=== PATIENT | female | born 1935 | race Caucasian/White ===

== ENCOUNTER 2016-09-10 12:03 | Inpatient (IN) | payer MEDICARE, MEDICAID ==
[~2016-09-10] VITALS: Ht 160 cm; Wt 63.5 kg
[~2016-09-10 12:03] MED LIST: AMIO200T2 PO; APIX2.5T PO; ATOR40TA PO; CARV12.52 PO; ISOS30TA28 PO; LETR2.5T7 PO; LOSA100T15 PO; OMEP40CA37 PO
--- NOTE | 2016-09-10 12:30 | NUR ---
PT SENT FROM [facility] FOR PSYCH EVAL, C/O SUICIDAL IN OFFICE. NAD NOTED. PT NOTED CALM AND COOPERATIVE. FAMILY MEMBER AT BS. VSS. SAFETY AND COMFORT MEASURES PROVIDED. WILL MONITOR.
--- NOTE | 2016-09-10 12:42 | NUR ---
CALLED [facility] FOR PSYCH EVAL
[2016-09-10 12:52] LABS: BASOPHILS % (AUTO) 0.6 % (0.0-2.0); EOSINOPHILS # (AUTO) 0.1 /CMM (0.0-0.7); EOSINOPHILS % (AUTO) 1.6 % (0.0-6.0); HEMATOCRIT 35 % (33-45); HEMOGLOBIN 11.4 g/dL (11.5-14.8); LYMPHOCYTES % (AUTO) 24.3 % (20.0-44.0); MEAN CORPUSCULAR HEMOGLOBIN 27 PG (26.0-33.0); MEAN CORPUSCULAR HGB CONC 33 g/dl (31.0-36.0); MEAN CORPUSCULAR VOLUME 82 fL (82-100); MONOCYTES # (AUTO) 0.3 /CMM (0.1-1.30); MONOCYTES % (AUTO) 7.4 % (2.0-12.0); NEUTROPHILS # (AUTO) 2.8 /CMM (1.8-8.9); NEUTROPHILS % (AUTO) 66.1 % (43.0-81.0); PLATELET COUNT (AUTO) 183 /CMM (150-450); RDW COEFFICIENT OF VARIATION 14.5 (11.5-15.0); RED BLOOD CELL COUNT(AUTO) 4.22 MIL/uL (4.0-5.2); WHITE BLOOD COUNT (AUTO) 4.3 K/uL (4.3-11.0)
[2016-09-10 13:01] LABS: APPEARANCE,URINE Clear (CLEAR); BILIRUBIN,URINE Negative (NEGATIVE); BLOOD, URINE Negative Ery/uL (NEGATIVE); COLOR,URINE Yellow (YELLOW); KETONES,URINE Trace (NEGATIVE); LEUKOCYTE ESTERASE ,URINE Negative (NEGATIVE); NITRITE, URINE Negative (NEGATIVE); PROTEIN,URINE Negative (NEGATIVE); UGLUCOSE Negative (NEGATIVE); UROBILINOGEN,URINE 0.2 EU/dL (0.2)
[2016-09-10 13:08] LABS: TROPONIN I 0.021 ng/mL (0.00-0.056)
[2016-09-10 13:10] LABS: CANNABINOID, URINE NEGATIVE (NEGATIVE); PHENCYCLIDINE SCREEN,URINE NEGATIVE (NEGATIVE)
[2016-09-10 13:13] LABS: ADD URINE CULTURE NO; BACTERIA,URINE Rare /HPF (None Seen); RBC,URINE 0-3 /HPF (0-2); SQUAMOUS EPITHELIAL CELL,UR Few /HPF (None Seen)
[2016-09-10 13:14] LABS: CALCIUM, SERUM 8.9 mg/dL (8.5-10.1); CARBON DIOXIDE 25 mmol/L (21-32); CHLORIDE 105 mmol/L (98-107); CREATININE 0.9 mg/dL (0.6-1.3); GLUCOSE 177 mg/dL (74-106); SODIUM SERUM 140 mmol/L (136-145); UREA NITROGEN, BLOOD 16 mg/dL (7-18)
[2016-09-10 13:16] LABS: ALCOHOL, BLOOD < 3 mg/dL (0-0)
--- NOTE | 2016-09-10 13:24 | NUR ---
CALLED INTAKE SPOKE WITH [facility]
--- NOTE | 2016-09-10 13:39 | NUR ---
[facility] AT BEDSIDE FOR EVAL
--- NOTE | 2016-09-10 14:50 | NUR ---
REPORT GIVEN TO JAYESH NEGRON FOR [facility] [phone]
[2016-09-10] MEDS ORDERED: LORAZEPAM 0.5 MG TABLET PO PRN (15:30)
[2016-09-10] MEDS ORDERED: MAG HYDROX/AL HYDROX/SIMETH 30 ML UDC PO PRN (15:30)
[2016-09-10] MEDS ORDERED: ACETAMINOPHEN 325 MG TABLET PO PRN (15:30)
[2016-09-10] MEDS ORDERED: MAGNESIUM HYDROXIDE 30 ML UDC PO PRN (15:30)
[2016-09-10] MEDS ORDERED: ZOLPIDEM TARTRATE 5 MG TABLET PO PRN (15:30)
--- NOTE | 2016-09-10 15:51 | NUR ---
GPS RN ADMITTING NOTE: PATIENT 81 Y/O FEMALE ADMITTED TO GPS ON 515 HOLD FOR DTS, GD. PER HOLD PATIENT TOLD HE PRIMACY CARE PHYSICIAN THAT SHE WAS SUICIDAL, PER F/F EVAL PATIENT A/O X3 DEPRESSED MOOD DENIES SI/HI PT STATED " IM LIVING TODAY HOME" GRANDSON AT THE BED SIDE PER PER DAUGHTER PATIENT WAS INCREASINGLY DEPRESSED, DR MEANS AWARE AND STANDING ORDERS PLACED AND CARED OUT. BELONGINGS CHECKED.
[2016-09-10 16:00] VITALS: BP 130/74
[2016-09-10] MEDS ORDERED: DABI150C PO (16:19)
[2016-09-10] MEDS ORDERED: GLIP5TAB13 PO (16:19)
[2016-09-10] MEDS ORDERED: CARV40CP PO (16:19)
[2016-09-10] MEDS ORDERED: ATOR40TA PO (16:19)
[2016-09-10] MEDS ORDERED: SITA1TAB6 PO (16:19)
[2016-09-10] MEDS ORDERED: LORA10TA7 PO (16:19)
[2016-09-10] MEDS ORDERED: OMEP20TA68 PO (16:19)
[2016-09-10] MEDS ORDERED: DRON400T2 PO (16:19)
[2016-09-10] MEDS ORDERED: ESCI20TA PO (16:19)
[2016-09-10] MEDS ORDERED: VALS1TAB52 PO (16:26)
[2016-09-10 16:59] VITALS: BP 130/74
[2016-09-10] MEDS ORDERED: VALS320T13 PO (18:14)
[2016-09-10] MEDS: ESCITALOPRAM OXALATE (10 MG) 10 MG TABLET PO SCH (18:33)
--- NOTE | 2016-09-10 19:15 | NUR ---
GPS RN NOTE: PATIENT SKIN CHECKED PICTURE PLACED IN THE CHART , RECONCILED HOME MEDICATIONS WITH DR CAMPOVERDE FAX TO PHARMACY AND CALLED PHARMACY TO VERIFY.
[2016-09-10 20:21] VITALS: BP 152/67
[2016-09-10] MEDS: CARVEDILOL 12.5 MG TABLET PO SCH (21:53)
[2016-09-10] MEDS: glipiZIDE 5 MG TABLET PO SCH (21:53)
[2016-09-10] MEDS: ATORVASTATIN 40 MG TABLET PO SCH (21:54)
[2016-09-10] MEDS: ISOSORBIDE MONONITRATE (30MG) 30 MG TAB.SR.24H PO SCH (21:54)
[2016-09-10] MEDS: DRONEDARONE HYDROCHLORIDE 400 MG TABLET PO SCH (21:55)
[2016-09-10] MEDS: DABIGATRAN ETEXILATE MESYLATE 150 MG CAPSULE PO SCH (21:56)
[2016-09-11 07:33] LABS: ALBUMIN 3.2 g/dL (3.4-5.0); BILIRUBIN,TOTAL 0.5 mg/dL (0.2-1.0); CALCIUM, SERUM 8.5 mg/dL (8.5-10.1); CREATININE 0.7 mg/dL (0.6-1.3); POTASSIUM 3.7 mmol/L (3.5-5.1)
[2016-09-11 08:00] VITALS: BP 146/76
[2016-09-11] MEDS: PANTOPRAZOLE 40 MG TABLET.DR PO SCH (08:21)
[2016-09-11] MEDS: LINAGLIPTIN 5 MG TABLET PO SCH (08:22)
[2016-09-11] MEDS: ISOSORBIDE MONONITRATE (30MG) 30 MG TAB.SR.24H PO SCH ×3 (08:22→16:38)
[2016-09-11] MEDS: CARVEDILOL 12.5 MG TABLET PO SCH ×2 (08:22→21:05)
[2016-09-11] MEDS: LORATADINE 10 MG TABLET PO SCH (08:22)
[2016-09-11] MEDS: glipiZIDE 5 MG TABLET PO SCH ×2 (08:22→16:37)
[2016-09-11] MEDS: ESCITALOPRAM OXALATE (10 MG) 10 MG TABLET PO SCH (08:22)
[2016-09-11] MEDS: DRONEDARONE HYDROCHLORIDE 400 MG TABLET PO SCH ×2 (08:23→09:00)
[2016-09-11] MEDS: DABIGATRAN ETEXILATE MESYLATE 150 MG CAPSULE PO SCH ×2 (08:24→09:00)
[2016-09-11] MEDS: APIXABAN 5 MG TABLET PO SCH ×2 (12:02→16:38)
--- NOTE | 2016-09-11 13:05 | NUR ---
Initial Discharge Plan: Patient resides with her daughter at [address] [place] [address]; [phone]. Patient wants to return back home and daughter is in agreement with the plan (Joyce Miller- [phone]). She states that she will be able to scrap picker the patient when she is ready for discharge. SW will help form a safe and proper discharge.
[2016-09-11 16:00] VITALS: BP 156/80
[2016-09-11] MEDS: ATORVASTATIN 40 MG TABLET PO SCH (17:55)
[2016-09-11 20:00] VITALS: BP 118/63
[2016-09-11] MEDS: METFORMIN 500 MG TABLET PO SCH (21:05)
[2016-09-12 08:00] VITALS: BP 149/76
[2016-09-12] MEDS: ESCITALOPRAM OXALATE (10 MG) 10 MG TABLET PO SCH (08:14)
[2016-09-12] MEDS: METFORMIN 500 MG TABLET PO SCH (08:15)
[2016-09-12] MEDS: PANTOPRAZOLE 40 MG TABLET.DR PO SCH (08:15)
[2016-09-12] MEDS: ISOSORBIDE MONONITRATE (30MG) 30 MG TAB.SR.24H PO SCH (08:15)
[2016-09-12] MEDS: LINAGLIPTIN 5 MG TABLET PO SCH (08:15)
[2016-09-12] MEDS: LORATADINE 10 MG TABLET PO SCH (08:15)
[2016-09-12] MEDS: glipiZIDE 5 MG TABLET PO SCH (08:15)
[2016-09-12 08:16] VITALS: BP 149/76
[2016-09-12] MEDS: APIXABAN 5 MG TABLET PO SCH (08:16)
[2016-09-12] MEDS: CARVEDILOL 12.5 MG TABLET PO SCH (08:16)
[2016-09-12] MEDS ORDERED: AMIODARONE HCL 200 MG TABLET PO SCH (09:00)
--- NOTE | 2016-09-12 11:24 | NUR ---
PT. WITH AN ORDER TO D/C HOLD AND D/C HOME. PT. WITHOUT DISTRESS, DENIES SUICIDAL AND HOMICIDAL AND TO FOLLOW UP ON PSYCH AND MEDICAL DOCTORS. DR. CAMPOVERDE MADE AWARE OF THE DISCHARGE AND SAID OK FOR DISCHARGE AND CONTINUE SAME MEDS.
--- NOTE | 2016-09-12 12:00 | NUR ---
PT. SIGNED THE DISCHARGE PAPERS , BELONGINGS READY AND PICTURES TAKEN FOR SKIN ISSUES.
--- NOTE | 2016-09-12 12:50 | NUR ---
PT. LEFT THE UNIT WITH BELONGINGS AND PICKED UP BY HER DAUGHTER SYDNEY JACOBO. PT. INSTRUCTED ON MEDS TO CONTINUE AT HOME AND VERBALIZES UNDERSTANDING AND PER PT. SHE HAS HER MEDICAL MEDS AT HOME AND SHE KNOWS HER MEDS AND NO NEED FOR MEDICAL PRESCRIPTIONS. PT. INSTRUCTED TO MAKE A FOLLOW UP ON HER PSYCHIATRIST AND MEDICAL DOCTORS AND AGREED. PT. LEFT THE UNIT VIA A WHEELCHAIR AND WHEELED BY STAFF TO THE LOBBY. LEFT WITHOUT DISTRESS AND ON STABLE CONDITION. V/S TAKEN: BP 136/84, NJ 76, RR 18'OXYGEN SAT 98% AND TEMP 98.4.
== END 2016-09-12 12:50 | disposition home or self-care (01) | DRG 881 ==
LOC: ER 12:08 → GPS 14:49
PROVIDERS: ADMIT Psychiatry & Neurology Psychiatry; ATTEND Internal Medicine
DX: F32.9 Major depressive disorder, single episode, unspecified (principal); Z91.14 Patient's other noncompliance with medication regimen; Z79.899 Other long term (current) drug therapy; Z95.0 Presence of cardiac pacemaker; Z92.3 Personal history of irradiation; Z85.3 Personal history of malignant neoplasm of breast; I25.10 Atherosclerotic heart disease of native coronary artery without angina pectoris; I10 Essential (primary) hypertension; E78.5 Hyperlipidemia, unspecified; E11.40 Type 2 diabetes mellitus with diabetic neuropathy, unspecified; M19.90 Unspecified osteoarthritis, unspecified site; I48.0 Paroxysmal atrial fibrillation
CPT/HCPCS: 36415; 80048-TC; 80053-TC; 80061-TC; 80305; 81000-TC; 84484-TC; 85025-TC; 87081-TC; A4606; G0480; Z7610

== ENCOUNTER 2016-12-30 19:19 | Emergency (ER) | payer MEDICARE, MEDICAID ==
[~2016-12-30] VITALS: Ht 160 cm; Wt 64.9 kg
[~2016-12-30 19:19] MED LIST changes: -AMIO200T2 PO; -APIX2.5T PO; -CARV12.52 PO; +CARV40CP PO; +DABI150C PO; +DRON400T2 PO; +ESCI20TA PO; +GLIP5TAB13 PO; -LETR2.5T7 PO; +LORA10TA7 PO; -LOSA100T15 PO; +OMEP20TA68 PO; -OMEP40CA37 PO; +SITA1TAB6 PO; +VALS320T13 PO
--- NOTE | 2016-12-30 19:31 | NUR ---
pt c/o lt side back pain s/p fell out of bed x last thursday, no ko, no head trauma, denies dysuria, hematuria. AOx4, afebrile w/ resp even & unlabored, denies any sob w/ mild discomfort noted. Pending further lion starks MD.
--- NOTE | 2016-12-30 19:35 | NUR ---
Urine obtained & sent.
[2016-12-30 19:51] LABS: APPEARANCE,URINE Clear (CLEAR); BILIRUBIN,URINE Negative (NEGATIVE); BLOOD, URINE Negative Ery/uL (NEGATIVE); COLOR,URINE Yellow (YELLOW); KETONES,URINE Negative (NEGATIVE); LEUKOCYTE ESTERASE ,URINE Negative (NEGATIVE); NITRITE, URINE Negative (NEGATIVE); PH,URINE 5.5 (5.0-8.0); PROTEIN,URINE 30 mg/dl (NEGATIVE); UGLUCOSE Negative (NEGATIVE); UROBILINOGEN,URINE 0.2 EU/dL (0.2)
[2016-12-30 20:02] LABS: BACTERIA,URINE None seen /HPF (None Seen); RBC,URINE 0-2 /HPF (0-2); SQUAMOUS EPITHELIAL CELL,UR Few /HPF (None Seen); WBC,URINE 0-2 /HPF (0-3)
[2016-12-30] MEDS ORDERED: ACETAMINOPHEN ES 500 MG TABLET ONE (20:07)
--- NOTE | 2016-12-30 20:08 | NUR ---
pt medicated as ordered for lt side back pain. Sent to CT via [facility].
--- NOTE | 2016-12-30 20:22 | NUR ---
pt back fr CT.
[2016-12-30] MEDS ORDERED: ACETAMINOPHEN ES 500 MG TABLET PO ONE (20:30)
--- NOTE | 2016-12-30 21:13 | NUR ---
Dr. Bravo at bedside for update on pt status.
--- NOTE | 2016-12-30 21:14 | NUR ---
Patient discharged to home in stable condition. Written and verbal after care instructions given. Patient verbalizes understanding of instruction.
[2016-12-30 21:18] VITALS: BP 178/86
== END 2016-12-30 21:20 | disposition home or self-care (01) ==
LOC: ER 19:24
DX: S30.0XXA Contusion of lower back and pelvis, initial encounter (principal); E11.9 Type 2 diabetes mellitus without complications; I10 Essential (primary) hypertension; Z79.01 Long term (current) use of anticoagulants; Z90.710 Acquired absence of both cervix and uterus; Z95.0 Presence of cardiac pacemaker; W06.XXXA Fall from bed, initial encounter; Y93.89 Activity, other specified; Y92.89 Other specified places as the place of occurrence of the external cause; Y99.9 Unspecified external cause status
CPT/HCPCS: 74176; 81001; 99285; A4606; 71250-TC; 81000-TC; Z7610

== ENCOUNTER 2017-01-07 10:26 | Emergency (ER) | payer MEDICARE, MEDICAID ==
[~2017-01-07] VITALS: Ht 157.5 cm; Wt 64.9 kg
[2017-01-07 10:30] VITALS: BP 117/88
== END 2017-01-07 11:58 | disposition home or self-care (01) ==
LOC: ER 10:29
DX: S22.089A Unspecified fracture of T11-T12 vertebra, initial encounter for closed fracture (principal); G62.9 Polyneuropathy, unspecified; E11.9 Type 2 diabetes mellitus without complications; I10 Essential (primary) hypertension; M81.0 Age-related osteoporosis without current pathological fracture; Z79.01 Long term (current) use of anticoagulants; Z95.0 Presence of cardiac pacemaker; W06.XXXA Fall from bed, initial encounter; Y93.89 Activity, other specified; Y92.89 Other specified places as the place of occurrence of the external cause; Y99.8 Other external cause status
CPT/HCPCS: 99281; A4606; Z7502; Z7610

== ENCOUNTER 2017-05-09 18:05 | Emergency (ER) | payer MEDICARE, MEDICAID ==
[~2017-05-09] VITALS: Ht 154.9 cm; Wt 72.6 kg
[~2017-05-09 18:05] MED LIST changes: +OMEP20TA5 PO; -OMEP20TA68 PO
--- NOTE | 2017-05-09 19:10 | NUR ---
TO BED 3 AMBULATORY WITH GRANDSON C/O PALPITATIONS X 2 WKS. HX PACEMAKER. PT AAOX4 NO ACUTE DISTRESS NOTED, RESP EVEN AND UNLABORED. PLACE PT ON CARDIAC MONITORING, CONTINUOUS POX. PENDING ER MD HALL.
[2017-05-09] MEDS ORDERED: IV NS 0.9% 500 ML BAG IV ONE (20:00)
[2017-05-09 20:08] LABS: BASOPHILS % (AUTO) 0.6 % (0.0-2.0); EOSINOPHILS # (AUTO) 0.1 /CMM (0.0-0.7); EOSINOPHILS % (AUTO) 2.3 % (0.0-6.0); HEMATOCRIT 32 % (33-45); HEMOGLOBIN 10.8 g/dL (11.5-14.8); LYMPHOCYTES # (AUTO) 1.4 /CMM (0.8-4.8); LYMPHOCYTES % (AUTO) 29.3 % (20.0-44.0); MEAN CORPUSCULAR HEMOGLOBIN 27 PG (26.0-33.0); MEAN CORPUSCULAR HGB CONC 33 g/dl (31.0-36.0); MEAN CORPUSCULAR VOLUME 79 fL (82-100); MONOCYTES # (AUTO) 0.5 /CMM (0.1-1.30); MONOCYTES % (AUTO) 9.6 % (2.0-12.0); NEUTROPHILS # (AUTO) 2.8 /CMM (1.8-8.9); NEUTROPHILS % (AUTO) 58.2 % (43.0-81.0); PLATELET COUNT (AUTO) 175 /CMM (150-450); RDW COEFFICIENT OF VARIATION 14.3 (11.5-15.0); RED BLOOD CELL COUNT(AUTO) 4.08 MIL/uL (4.0-5.2); WHITE BLOOD COUNT (AUTO) 4.8 K/uL (4.3-11.0)
[2017-05-09 20:19] LABS: CALCIUM, SERUM 8.9 mg/dL (8.5-10.1); CARBON DIOXIDE 26 mmol/L (21-32); CHLORIDE 103 mmol/L (98-107); CREATININE 0.8 mg/dL (0.6-1.3); GLUCOSE 255 mg/dL (74-106); POTASSIUM 4.1 mmol/L (3.5-5.1); SODIUM SERUM 139 mmol/L (136-145); UREA NITROGEN, BLOOD 16 mg/dL (7-18)
--- NOTE | 2017-05-09 20:21 | NUR ---
[employer] CALLED FOR PACEMAKER INTERROGATION. WAITING FOR GARBAGE COLLECTOR SUPERVISOR CALL BACK.
[2017-05-09 20:23] LABS: INR 1.06 (0.87-1.13)
[2017-05-09 20:28] LABS: TROPONIN I 0.032 ng/mL (0.00-0.056)
--- NOTE | 2017-05-09 20:54 | NUR ---
CALLED 'S OFFICE, SENIOR TRAINING AND DEVELOPMENT REP, TRANSFERRED CALL TO DR. ROLAND
--- NOTE | 2017-05-09 21:05 | NUR ---
CALLED , LEFT MESSAGE ON VOICEMAIL
--- NOTE | 2017-05-09 21:10 | NUR ---
[employer] STAFF AT BEDSIDE FOR PACEMAKER INTERROGATION.
[2017-05-09 21:35] VITALS: BP 123/68
--- NOTE | 2017-05-09 21:37 | NUR ---
IV removed. Catheter intact and site benign. Pressure and 4x4 applied to site. No bleeding noted. Patient discharged to home in stable condition. Written and verbal after care instructions given. Patient verbalizes understanding of instruction. ambulatory with a steady gait
== END 2017-05-09 21:41 | disposition home or self-care (01) ==
LOC: ER 18:10
DX: I47.1 Supraventricular tachycardia (principal); I10 Essential (primary) hypertension; E11.9 Type 2 diabetes mellitus without complications; Z95.0 Presence of cardiac pacemaker; Z90.710 Acquired absence of both cervix and uterus; Z98.890 Other specified postprocedural states; Z79.01 Long term (current) use of anticoagulants
CPT/HCPCS: 36415; 71010; 80048; 84484; 85025; 85730; 87081; 93005; 99285; A4606; J7040; Z7610

== ENCOUNTER 2017-05-17 23:40 | Inpatient (IN) | payer MEDICARE, MEDICAID ==
[~2017-05-17] VITALS: Ht 154.9 cm; Wt 69.4 kg
--- NOTE | 2017-05-17 23:46 | NUR ---
PT TO ER BED 5. PT BIB FAMILY C/O CP/SOB X 12 HOURS. PT PLACED IN GOWN AND ON BUILDING TECH. VSS/RESP EVEN UNLABORED/NAD NOTED/SKIN WARM AND DRY/DENIES N-V-D/AOX4. AWAITING MD HALL.
--- NOTE | 2017-05-17 23:50 | NUR ---
EMT AT BEDSIDE FOR EKG.
[2017-05-18] MEDS ORDERED: MORPHINE SULFATE INJ 4 MG/ML DISP.SYRIN ONE (00:22)
[2017-05-18] MEDS ORDERED: ONDANSETRON HCL/PF 4 MG/2 ML VIAL ONE (00:22)
--- NOTE | 2017-05-18 00:29 | NUR ---
LAB AT [facility].
[2017-05-18] MEDS ORDERED: MORPHINE SULFATE INJ 2 MG/ML DISP.SYRIN IV ONE (00:30)
[2017-05-18] MEDS ORDERED: ONDANSETRON HCL/PF 4 MG/2 ML VIAL IVP ONE (00:30)
[2017-05-18 00:37] LABS: BASOPHILS # (AUTO) 0.1 /CMM (0.0-0.2); BASOPHILS % (AUTO) 1.1 % (0.0-2.0); EOSINOPHILS # (AUTO) 0.1 /CMM (0.0-0.7); EOSINOPHILS % (AUTO) 1.6 % (0.0-6.0); HEMATOCRIT 34 % (33-45); HEMOGLOBIN 11.3 g/dL (11.5-14.8); LYMPHOCYTES # (AUTO) 1.3 /CMM (0.8-4.8); LYMPHOCYTES % (AUTO) 21.6 % (20.0-44.0); MEAN CORPUSCULAR HEMOGLOBIN 27 PG (26.0-33.0); MEAN CORPUSCULAR HGB CONC 33 g/dl (31.0-36.0); MEAN CORPUSCULAR VOLUME 81 fL (82-100); MONOCYTES # (AUTO) 0.4 /CMM (0.1-1.30); MONOCYTES % (AUTO) 6.9 % (2.0-12.0); NEUTROPHILS % (AUTO) 68.8 % (43.0-81.0); PLATELET COUNT (AUTO) 181 /CMM (150-450); RDW COEFFICIENT OF VARIATION 15.1 (11.5-15.0); RED BLOOD CELL COUNT(AUTO) 4.23 MIL/uL (4.0-5.2); WHITE BLOOD COUNT (AUTO) 5.9 K/uL (4.3-11.0)
--- NOTE | 2017-05-18 00:48 | NUR ---
DAUGHTER AT BEDSIDE SPEAKING WITH PT.
[2017-05-18 00:50] LABS: CALCIUM, SERUM 8.6 mg/dL (8.5-10.1); CARBON DIOXIDE 24 mmol/L (21-32); CHLORIDE 106 mmol/L (98-107); CREATININE 0.8 mg/dL (0.6-1.3); GLUCOSE 226 mg/dL (74-106); INR 1.01 (0.87-1.13); POTASSIUM 3.6 mmol/L (3.5-5.1); PROTHROMBIN TIME 10.5 SECS (9.5-12.7); SODIUM SERUM 143 mmol/L (136-145); UREA NITROGEN, BLOOD 12 mg/dL (7-18)
[2017-05-18 00:55] LABS: TROPONIN I < 0.017 ng/mL (0.00-0.056)
[2017-05-18 00:59] LABS: ALANINE AMINOTRANSFERASE 36 U/L (12-78); ALBUMIN 3.3 g/dL (3.4-5.0); ALKALINE PHOSPHATASE 67 U/L (46-116); ASPARTATE AMINOTRANSFERASE 39 U/L (15-37); B-TYPE NATRIURETIC PEPTIDE 1353 PG/ML (0-125); BILIRUBIN,DIRECT 0.1 mg/dL (0.0-0.2); BILIRUBIN,TOTAL 0.3 mg/dL (0.2-1.0); TOTAL PROTEIN, SERUM 7.7 g/dL (6.4-8.2)
--- NOTE | 2017-05-18 00:59 | NUR ---
XRAY AT BEDSIDE.
--- NOTE | 2017-05-18 01:45 | NUR ---
PT RESTING QUIETLY, RN TO CONTINUE TO MONITOR PROVIDING SAFETY/COMFORT MEASURES.
[2017-05-18] MEDS ORDERED: FUROSEMIDE 40 MG/4 ML VIAL IV ONE (02:00)
[2017-05-18] MEDS ORDERED: HYDROCODONE/APAP 5/325MG 1 EACH TABLET PO PRN (02:30)
[2017-05-18] MEDS ORDERED: DEXTROSE 50%-WATER 50 ML DISP.SYRIN IV PRN (02:30)
[2017-05-18] MEDS ORDERED: ACETAMINOPHEN 325 MG TABLET PO PRN (02:30)
[2017-05-18] MEDS ORDERED: Z GUARD REMEDY 2 OZ OINT TP PRN (02:30)
[2017-05-18] MEDS ORDERED: MAGNESIUM HYDROXIDE 30 ML UDC PO PRN (02:30)
[2017-05-18] MEDS ORDERED: MAG HYDROX/AL HYDROX/SIMETH 30 ML UDC PO PRN (02:30)
[2017-05-18] MEDS ORDERED: ZOLPIDEM TARTRATE 5 MG TABLET PO PRN (02:30)
[2017-05-18] MEDS: NITROGLYCERIN PACKET 1 GM PACKET TOP SCH ×4 (02:30→20:37)
[2017-05-18] MEDS ORDERED: ONDANSETRON HCL/PF 4 MG/2 ML VIAL IVP PRN (02:30)
--- NOTE | 2017-05-18 02:31 | NUR ---
tele [phone]
[2017-05-18] MEDS ORDERED: FUROSEMIDE 40 MG/4 ML VIAL ONE (03:16)
--- NOTE | 2017-05-18 03:20 | NUR ---
MEDICATED PER MD ORDERS, VSS.
--- NOTE | 2017-05-18 03:50 | NUR ---
REPORT GIVEN TO TYRA FOR JADA.
--- NOTE | 2017-05-18 03:51 | NUR ---
PT TRANSPORTED TO [facility] 114-1 ON WHEEL INSPECTOR VIA STRETCHER WITH RN PER ACLS PROTOCOL.
[2017-05-18 04:00] VITALS: BP 155/67
[2017-05-18] MEDS ORDERED: NITROGLYCERIN PACKET 1 GM PACKET ONE (05:30)
[2017-05-18] MEDS: BLOOD SUGAR DIAGNOSTIC 1 EACH STRIP VI SCH ×4 (07:30→21:37)
--- NOTE | 2017-05-18 07:34 | NUR ---
COLLECTION ANALYST NOTE PATIENT CAME TO [facility] FROM ER. DX CHF. PT C/O FOR CP AND SOB. PT HAS A PACEMAKER. PT PLACED ON BODY MAN. PACING A, B AND A&B . PT ON 2L OF O2. SKIN IS WARM AND DRY TO TOUCH. RU ARM IV SITE FLUSHED AND PATENT. PT AMBULATES, ALL SAFETY PRECAUTIONS IMPLEMENTED. CALL LIGHT IN REACH, BED ALARM ON, BED IN LOCKED, LOW POSITION WITH TWO SIDE RAILS UP. WILL CONTINUE TO MONITOR CLOSELY.
--- NOTE | 2017-05-18 07:59 | NUR ---
SLIVER HANDLER NOTES RECEIVED PT ON BED. SLEEPING. A/0X3. ON NASAL CANNULA TOLERATING WELL.IV ACCESS ON RFA #22 , NO SIGN OF PAIN OR REDNESS. HEAD OF BED UP. SIDE RAILS UP. WILL CONTINUE TO MONITOR PT CLOSELY.
[2017-05-18 08:00] VITALS: BP 153/74
[2017-05-18] MEDS: FUROSEMIDE 40 MG/4 ML VIAL IV SCH ×4 (09:06→20:37)
[2017-05-18] MEDS: *INSULIN REGULAR(HUMULIN R)HUM 100 UNIT/ML VIAL SQ PRN ×4 (09:06→21:42)
[2017-05-18] MEDS ORDERED: CARVEDILOL 25 MG TABLET PO SCH (10:30)
[2017-05-18] MEDS ORDERED: DABIGATRAN ETEXILATE MESYLATE 150 MG CAPSULE PO ONE (10:30)
[2017-05-18] MEDS: ESCITALOPRAM OXALATE (10 MG) 10 MG TABLET PO SCH (10:31)
[2017-05-18] MEDS: VALSARTAN 80 MG TABLET PO SCH (10:31)
[2017-05-18] MEDS: ISOSORBIDE MONONITRATE (30MG) 30 MG TAB.SR.24H PO SCH ×2 (10:32→18:27)
[2017-05-18] MEDS: LORATADINE 10 MG TABLET PO SCH (10:32)
[2017-05-18] MEDS: DRONEDARONE HYDROCHLORIDE 400 MG TABLET PO SCH ×2 (10:32→17:00)
[2017-05-18 12:00] VITALS: BP 142/64
[2017-05-18] MEDS: POTASSIUM CHLORIDE 20 MEQ TAB.PRT.SR PO SCH ×3 (12:38→14:42)
[2017-05-18] MEDS: CARVEDILOL 12.5 MG TABLET PO SCH ×2 (12:39→20:37)
[2017-05-18 13:07] LABS: BASOPHILS % (AUTO) 0.6 % (0.0-2.0); EOSINOPHILS # (AUTO) 0.1 /CMM (0.0-0.7); EOSINOPHILS % (AUTO) 1.7 % (0.0-6.0); HEMATOCRIT 35 % (33-45); HEMOGLOBIN 11.5 g/dL (11.5-14.8); LYMPHOCYTES % (AUTO) 22.3 % (20.0-44.0); MEAN CORPUSCULAR HEMOGLOBIN 27 PG (26.0-33.0); MEAN CORPUSCULAR HGB CONC 33 g/dl (31.0-36.0); MEAN CORPUSCULAR VOLUME 81 fL (82-100); MONOCYTES # (AUTO) 0.3 /CMM (0.1-1.30); MONOCYTES % (AUTO) 7.6 % (2.0-12.0); NEUTROPHILS % (AUTO) 67.8 % (43.0-81.0); PLATELET COUNT (AUTO) 180 /CMM (150-450); RDW COEFFICIENT OF VARIATION 15.1 (11.5-15.0); RED BLOOD CELL COUNT(AUTO) 4.25 MIL/uL (4.0-5.2); WHITE BLOOD COUNT (AUTO) 4.5 K/uL (4.3-11.0)
[2017-05-18 13:20] LABS: CALCIUM, SERUM 9.1 mg/dL (8.5-10.1); CARBON DIOXIDE 29 mmol/L (21-32); CHLORIDE 100 mmol/L (98-107); GLUCOSE 186 mg/dL (74-106); POTASSIUM 3.2 mmol/L (3.5-5.1); SODIUM SERUM 139 mmol/L (136-145); UREA NITROGEN, BLOOD 12 mg/dL (7-18)
[2017-05-18 13:25] LABS: ALANINE AMINOTRANSFERASE 33 U/L (12-78); ALBUMIN 3.4 g/dL (3.4-5.0); ALKALINE PHOSPHATASE 69 U/L (46-116); ASPARTATE AMINOTRANSFERASE 29 U/L (15-37); BILIRUBIN,TOTAL 0.3 mg/dL (0.2-1.0); TOTAL PROTEIN, SERUM 7.9 g/dL (6.4-8.2)
[2017-05-18 13:30] LABS: MAGNESIUM 0.7 mg/dL (1.8-2.4)
[2017-05-18 13:40] LABS: CHOLESTEROL 136 mg/dL (<200); FERRITIN 18 ng/mL (8-388); HDL CHOLESTEROL 48 mg/dL (40-60); LDL 64 mg/dL (0-99); THYROID STIMULATING HORMONE 1.586 uIU/mL (0.358-3.74); TRIGLYCERIDES 150 mg/dL (30-150)
--- NOTE | 2017-05-18 14:03 | NUR ---
ARTIST COLOR SEPARATION NOTES CALLED DR. SEPULVEDA REGARDING PT MAGNESIUM LEVEL .7
[2017-05-18] MEDS ORDERED: POTASSIUM CL. PREMIX PERIPHER. 50 ML IV SCH (14:30)
[2017-05-18] MEDS: Magnesium 1GM/D5W 100ML PREMIX 100 ML IV SCH ×5 (15:50→23:06)
[2017-05-18 16:00] VITALS: BP 95/52
--- NOTE | 2017-05-18 16:28 | NUR ---
STITCHER HAND NOTES NOTIFIED PHARMACY ABOUT POTASSIUM MEDICATION.
[2017-05-18] MEDS: ATORVASTATIN 40 MG TABLET PO SCH (18:26)
[2017-05-18] MEDS: APIXABAN 5 MG TABLET PO SCH (18:27)
--- NOTE | 2017-05-18 18:48 | NUR ---
CERTIFIED PHYSICAL THERAPIST ASSISTANT NOTES POTASSIUM IS NOT YET READY. CALLED PHARMACY TWICE.
--- NOTE | 2017-05-18 19:05 | NUR ---
CAREER DEVELOPMENT COORDINATOR/TEACHER OPENING NOTES RECEIVED REPORT FROM LARA NEGRON. PATIENT A/A/O X4, ABLE TO MAKE NEEDS KNOWN & NOTED W/ STEADY GAIT WHEN ASSISTED TO BATHROOM. BREATHING EVEN & UNLABORED, ON O2 2L VIA NC. DENIES SOB OR DIFFICULTY BREATHING. ON TELE SINUS RHYTHM, A-PACING W/ HR 70. DENIES ANY CHEST PAIN OR DISCOMFORT @ THIS TIME. RIGHT FOREARM IV #22 INTACT & PATENT W/ DRESSING CDI & IV MG @ 100 ML/HR. SAFETY MEASURES IN PLACE W/ SIDE RAILS UP, BED LOCKED & IN LOWEST POSITION & CALL LIGHT WITHIN REACH. WILL CONTINUE TO MONITOR.
[2017-05-18 19:39] LABS: IRON, SERUM 50 ug/dl (50-175); TOTAL IRON BINDING CAPACITY 489 ug/dl (250-450)
[2017-05-18 20:00] VITALS: BP 106/52
--- NOTE | 2017-05-18 20:00 | NUR ---
MODULAR HOME CREW MEMBER NOTES NO ACUTE CHANGES NOTED DURING THE SHIFT. MEDS ENDORSED PROPERLY TO THE PM NURSE. HEAD OF BED ELEVATED. SIDE RAILS UP. CALL LIGHT IS PLACED WITHIN REACH. PROVIDED SAFETY AND COMFORT THROUGHOUT THE SHIFT.
--- NOTE | 2017-05-18 20:43 | NUR ---
RN NOTES NITRO OINTMENT NON-ADMINISTERED, PATIENT DENIES ANY CHEST PAIN @ THIS TIME.
[2017-05-18] MEDS: POTASSIUM CL. PREMIX PERIPHER. 50 ML IV SCH ×2 (21:12→23:27)
[2017-05-19] VITALS: BP 137/66
[2017-05-19] MEDS: POTASSIUM CL. PREMIX PERIPHER. 50 ML IV SCH ×2 (01:35→03:34)
[2017-05-19] MEDS: FUROSEMIDE 40 MG/4 ML VIAL IV SCH ×6 (01:35→21:00)
[2017-05-19] MEDS ORDERED: Magnesium 1GM/D5W 100ML PREMIX 100 ML IV ONE ×2 (02:06→04:43)
[2017-05-19] MEDS: Magnesium 1GM/D5W 100ML PREMIX 100 ML IV SCH ×3 (02:23→09:49)
--- NOTE | 2017-05-19 02:56 | NUR ---
RN NOTES TROPONIN LEVEL RESULT RELAYED TO DR RIVERA. NO NEW ORDERS RECEIVED.
[2017-05-19 04:00] VITALS: BP 153/79
[2017-05-19] MEDS: NITROGLYCERIN PACKET 1 GM PACKET TOP SCH ×4 (04:47→21:20)
[2017-05-19 08:00] VITALS: BP 127/59
--- NOTE | 2017-05-19 08:00 | NUR ---
TELE1/RN AM SHIFT INITIAL NOTES RECEIVED PT AWAKE SITTING IN BED, NO ACUTE RESPIRATORY DISTRESS NOTED. PT A/O X 4, PT DENIES ANY SYMPTOMS. ON 2L O2 VIA N/C SATURATING @ 95%, LUNG SOUNDS DIMINISHED, RESPIRATIONS EVEN AND UNLABORED. ON TELE MONITORING, A-PACING, HR 75. IV SITES FLUSHED, PATENT WITH NO S/S OF INFECTION. BLOOD GLUCOSE CHECKED, 235, NO S/S OF HYPERGLYCEMIA, PT WILL BE GIVEN 6 UNITS OF REGULAR INSULIN SC, PER SLIDING SCALE. PT IS COMFORTABLE AT THIS TIME. SCHEDULED AM MEDICATIONS TO BE GIVEN. CL WITHIN REACHED AND SAFETY MAINTAINED. ON GOING MONITORING.
[2017-05-19 08:30] LABS: BASOPHILS % (AUTO) 0.3 % (0.0-2.0); EOSINOPHILS # (AUTO) 0.1 /CMM (0.0-0.7); EOSINOPHILS % (AUTO) 1.5 % (0.0-6.0); HEMATOCRIT 32 % (33-45); HEMOGLOBIN 10.9 g/dL (11.5-14.8); LYMPHOCYTES # (AUTO) 0.8 /CMM (0.8-4.8); MEAN CORPUSCULAR HEMOGLOBIN 27 PG (26.0-33.0); MEAN CORPUSCULAR HGB CONC 34 g/dl (31.0-36.0); MEAN CORPUSCULAR VOLUME 81 fL (82-100); MONOCYTES # (AUTO) 0.4 /CMM (0.1-1.30); MONOCYTES % (AUTO) 7.4 % (2.0-12.0); NEUTROPHILS # (AUTO) 4.2 /CMM (1.8-8.9); NEUTROPHILS % (AUTO) 76.8 % (43.0-81.0); PLATELET COUNT (AUTO) 190 /CMM (150-450); RDW COEFFICIENT OF VARIATION 14.9 (11.5-15.0); RED BLOOD CELL COUNT(AUTO) 4.01 MIL/uL (4.0-5.2); WHITE BLOOD COUNT (AUTO) 5.5 K/uL (4.3-11.0)
[2017-05-19 08:41] LABS: TROPONIN I 0.103 ng/mL (0.00-0.056)
[2017-05-19] MEDS: BLOOD SUGAR DIAGNOSTIC 1 EACH STRIP VI SCH ×4 (08:48→21:19)
[2017-05-19 08:51] LABS: ALANINE AMINOTRANSFERASE 31 U/L (12-78); ALBUMIN 3.4 g/dL (3.4-5.0); ALKALINE PHOSPHATASE 67 U/L (46-116); ASPARTATE AMINOTRANSFERASE 26 U/L (15-37); BILIRUBIN,TOTAL 0.4 mg/dL (0.2-1.0); CALCIUM, SERUM 8.8 mg/dL (8.5-10.1); CARBON DIOXIDE 29 mmol/L (21-32); CHLORIDE 100 mmol/L (98-107); GLUCOSE 181 mg/dL (74-106); MAGNESIUM 2.7 mg/dL (1.8-2.4); PHOSPHORUS 4.1 mg/dL (2.5-4.9); POTASSIUM 3.9 mmol/L (3.5-5.1); SODIUM SERUM 140 mmol/L (136-145); TOTAL PROTEIN, SERUM 7.8 g/dL (6.4-8.2); UREA NITROGEN, BLOOD 17 mg/dL (7-18)
[2017-05-19] MEDS ORDERED: Magnesium 1GM/D5W 100ML PREMIX PIGGYBACK IV ONE (09:00)
[2017-05-19] MEDS: PANTOPRAZOLE 40 MG TABLET.DR PO SCH (09:56)
[2017-05-19] MEDS: VALSARTAN 80 MG TABLET PO SCH (09:56)
[2017-05-19] MEDS: DRONEDARONE HYDROCHLORIDE 400 MG TABLET PO SCH ×2 (09:56→17:45)
[2017-05-19] MEDS: ESCITALOPRAM OXALATE (10 MG) 10 MG TABLET PO SCH (09:56)
[2017-05-19] MEDS: CARVEDILOL 12.5 MG TABLET PO SCH ×2 (09:57→21:00)
[2017-05-19] MEDS: APIXABAN 5 MG TABLET PO SCH ×2 (09:57→17:45)
[2017-05-19] MEDS: LORATADINE 10 MG TABLET PO SCH (09:57)
[2017-05-19] MEDS: ISOSORBIDE MONONITRATE (30MG) 30 MG TAB.SR.24H PO SCH ×2 (09:58→17:45)
[2017-05-19] MEDS: INSULIN REGULAR, HUMAN 100 UNIT/ML 3 ML VIAL SQ PRN ×3 (10:00→17:43)
[2017-05-19 12:00] VITALS: BP 100/52
[2017-05-19] MEDS ORDERED: POTASSIUM CHLORIDE 20 MEQ TAB.PRT.SR PO SCH (13:00)
[2017-05-19] MEDS: *INSULIN REGULAR(HUMULIN R)HUM 100 UNIT/ML VIAL SQ PRN ×2 (13:14→21:21)
[2017-05-19 16:00] VITALS: BP 100/47
[2017-05-19] MEDS ORDERED: MAGNESIUM CITRATE 296 ML BOTTLE PO ONE (16:30)
[2017-05-19] MEDS ORDERED: NA PHOS,M-B/NA PHOS,DI-BA 1 EA ENEMA RC PRN (16:30)
[2017-05-19] MEDS ORDERED: PEG 3350/NA SULF,BICARB,CL/KCL 4,000 ML BOTTLE PO ONE (16:30)
[2017-05-19] MEDS: ATORVASTATIN 40 MG TABLET PO SCH (17:45)
--- NOTE | 2017-05-19 19:30 | NUR ---
MS1/RN AM SHIFT END NOTES NO ACUTE CHANGE OF CONDITION NOTED DURING THE SHIFT. ALL NEEDS MET. PT ENDORSED TO PM NURSE TO CONTINUE CARE. CL WITHIN REACHED AND SAFETY MAINTAINED.
[2017-05-19 20:00] VITALS: BP 105/49
[2017-05-20 04:00] VITALS: BP 123/58
[2017-05-20] MEDS: NITROGLYCERIN PACKET 1 GM PACKET TOP SCH ×2 (05:00→12:17)
[2017-05-20] MEDS: BLOOD SUGAR DIAGNOSTIC 1 EACH STRIP VI SCH ×2 (06:34→12:17)
--- NOTE | 2017-05-20 07:30 | NUR ---
MS MIGDALIA AM NOTES RECEIVED PT AWAKE SITTING IN BED, NO ACUTE RESPIRATORY DISTRESS NOTED. PT A/O X 4, PT DENIES ANY SYMPTOMS. ON 2L O2 VIA N/C SATURATING @ 97%, LUNG SOUNDS DIMINISHED, RESPIRATIONS EVEN AND UNLABORED. LFA G22 AND RFA G22 IV SITES FLUSHED, SITE CLEAR. CCHO DIET, AMBULATE WITH ASSIST. SAFETY MEASURES IN PLACE, WILL CONT TO MONITOR.
[2017-05-20 07:34] LABS: BASOPHILS % (AUTO) 0.3 % (0.0-2.0); EOSINOPHILS # (AUTO) 0.2 /CMM (0.0-0.7); EOSINOPHILS % (AUTO) 3.2 % (0.0-6.0); HEMATOCRIT 31 % (33-45); HEMOGLOBIN 10.5 g/dL (11.5-14.8); LYMPHOCYTES % (AUTO) 18.2 % (20.0-44.0); MEAN CORPUSCULAR HEMOGLOBIN 27 PG (26.0-33.0); MEAN CORPUSCULAR HGB CONC 34 g/dl (31.0-36.0); MEAN CORPUSCULAR VOLUME 81 fL (82-100); MONOCYTES # (AUTO) 0.5 /CMM (0.1-1.30); MONOCYTES % (AUTO) 8.7 % (2.0-12.0); NEUTROPHILS # (AUTO) 3.7 /CMM (1.8-8.9); NEUTROPHILS % (AUTO) 69.6 % (43.0-81.0); PLATELET COUNT (AUTO) 199 /CMM (150-450); RDW COEFFICIENT OF VARIATION 14.8 (11.5-15.0); RED BLOOD CELL COUNT(AUTO) 3.89 MIL/uL (4.0-5.2); WHITE BLOOD COUNT (AUTO) 5.3 K/uL (4.3-11.0)
[2017-05-20 08:00] VITALS: BP 146/63
[2017-05-20 08:05] LABS: ALANINE AMINOTRANSFERASE 24 U/L (12-78); ALBUMIN 3.2 g/dL (3.4-5.0); ALKALINE PHOSPHATASE 61 U/L (46-116); ASPARTATE AMINOTRANSFERASE 19 U/L (15-37); BILIRUBIN,TOTAL 0.4 mg/dL (0.2-1.0); CALCIUM, SERUM 8.5 mg/dL (8.5-10.1); CARBON DIOXIDE 29 mmol/L (21-32); CHLORIDE 102 mmol/L (98-107); CREATININE 1.2 mg/dL (0.6-1.3); GLUCOSE 187 mg/dL (74-106); MAGNESIUM 2.1 mg/dL (1.8-2.4); PHOSPHORUS 3.4 mg/dL (2.5-4.9); POTASSIUM 4.1 mmol/L (3.5-5.1); SODIUM SERUM 140 mmol/L (136-145); TOTAL PROTEIN, SERUM 7.3 g/dL (6.4-8.2); TROPONIN I 0.034 ng/mL (0.00-0.056); UREA NITROGEN, BLOOD 25 mg/dL (7-18)
[2017-05-20] MEDS: DRONEDARONE HYDROCHLORIDE 400 MG TABLET PO SCH (08:49)
[2017-05-20] MEDS: PANTOPRAZOLE 40 MG TABLET.DR PO SCH (08:49)
[2017-05-20] MEDS: APIXABAN 5 MG TABLET PO SCH (08:50)
[2017-05-20] MEDS: FUROSEMIDE 40 MG/4 ML VIAL IV SCH (08:50)
[2017-05-20] MEDS: ISOSORBIDE MONONITRATE (30MG) 30 MG TAB.SR.24H PO SCH (08:51)
[2017-05-20] MEDS: VALSARTAN 80 MG TABLET PO SCH (08:51)
[2017-05-20] MEDS: LORATADINE 10 MG TABLET PO SCH (08:51)
[2017-05-20] MEDS: ESCITALOPRAM OXALATE (10 MG) 10 MG TABLET PO SCH (08:51)
[2017-05-20] MEDS: CARVEDILOL 12.5 MG TABLET PO SCH (08:52)
[2017-05-20] MEDS ORDERED: FUROSEMIDE 40 MG TABLET PO SCH (09:30)
--- NOTE | 2017-05-20 09:30 | NUR ---
MS RN NOTES DUE MEDS GIVEN. PATIENT TO BE SEEN BY DR. MIRELES PER DR. CAMPOVERDE PER JAXON CHARGE NURSE.
--- NOTE | 2017-05-20 12:21 | NUR ---
MIGDALIA NOTES JAKE DONE. BS 404 MG/DL. 15 UNITS HUM R INSULIN GIVEN PER SS. RANDOM GLUCOSE ORDERED NOTIFIED MD. Addendum: 05/20/17 at 1338 by LEONIE PARKER RN ADDENDUM: PER ADR. MIRELES TO GIVE ADDITIONAL 5 UNITS HUM R
[2017-05-20] MEDS: INSULIN REGULAR, HUMAN 100 UNIT/ML 3 ML VIAL SQ PRN (12:25)
[2017-05-20] MEDS ORDERED: INSULIN REGULAR, HUMAN 100 UNIT/ML 10 ML VIAL SQ ONE (12:45)
--- NOTE | 2017-05-20 13:33 | NUR ---
MS RN NOTES REPEAT BS CHECK 408 MG/DL. 5 UNITS HUM R GIVEN PER DR. MIRELES.
[2017-05-20] MEDS ORDERED: FURO40TA5 PO (13:48)
--- NOTE | 2017-05-20 14:14 | NUR ---
MS NEGRON NOTES RANDOM GLUCOSE 420 MG/DL. REPEAT ACCUCHECK - 369 MG/DL. Addendum: 05/20/17 at 1445 by LEONIE PARKER RN ADDENDUM RELAYED TO DR. MIRELES. PER HIM TO REPEAT ACCUCHECK IN AN HOUR. OK TO GO ONCE BS IS 300 MG/DL AND BELOW.
--- NOTE | 2017-05-20 15:54 | NUR ---
MS RN NOTES REPEAT ACCUCHECK - 203 MG/DL. AWARE.
[2017-05-20 16:00] VITALS: BP 123/55
--- NOTE | 2017-05-20 16:10 | NUR ---
PROCESSING TECHNOLOGIST NOTES PATIENT DISCHARGED TO HOME TODAY PER MD IN STABLE CONDITION. PROVIDED DC INSTRUCTIONS, MED RECON LIST AND HEALTH TEACHINGS. LFA AND RFA IV ACCESS REMOVED, NO BLEEDING, DRESSING IN PLACE. PT TO FOLLOW UP WITH PCP IN 1-2 WEEKS AND WILL MAKE OWN APPOINTMENT. ALL BELONGINGS CHECKED AND RETURNED. ALL PAPERWORKS SIGNED. SPOKE WITH DAUGHTER OVER THE PHONE RE MEDICATIONS TRANSMITTED TO [employer] ELECTRONICALLY AND READY FOR GAS SINGER. PATIENT ASSISTED TO LOBBY BY LOKESH ECHAVARRIA AND WILL GOHOME VIA PRIVATE CAR BY MALINI ALLEN.
[2017-05-21] MEDS ORDERED: FUROSEMIDE 40 MG TABLET PO SCH (09:00)
== END 2017-05-20 17:03 | disposition home or self-care (01) | DRG 282 ==
LOC: ER 23:43 → TELE1 05-18 02:15 → MEDSG1 05-19 13:08
PROVIDERS: ADMIT Internal Medicine; ATTEND Internal Medicine
DX: I11.0 Hypertensive heart disease with heart failure (principal); I21.4 Non-ST elevation (NSTEMI) myocardial infarction; E11.65 Type 2 diabetes mellitus with hyperglycemia; I50.33 Acute on chronic diastolic (congestive) heart failure; I48.91 Unspecified atrial fibrillation; Z90.710 Acquired absence of both cervix and uterus; Z95.0 Presence of cardiac pacemaker; E78.5 Hyperlipidemia, unspecified; I25.10 Atherosclerotic heart disease of native coronary artery without angina pectoris; K21.9 Gastro-esophageal reflux disease without esophagitis; Z85.3 Personal history of malignant neoplasm of breast; D50.9 Iron deficiency anemia, unspecified; D63.8 Anemia in other chronic diseases classified elsewhere; Z90.49 Acquired absence of other specified parts of digestive tract
CPT/HCPCS: 36415; 71045-TC; 80048-TC; 80053-TC; 80061-TC; 80076-TC; 82306; 82728-TC; 82945-TC; 82962-TC; 83540-TC; 83735-TC; 83880; 84100-TC; 84439-TC; 84443-TC; 84484-TC; 85025-TC; 85730-TC; 87040-TC; 87081-TC; 93307-TC; A4606; J1815; J1940; J2270; J2405; J3475; J3480; J7050; Z7610

== ENCOUNTER 2017-09-15 07:47 | Outpatient (CLI) | payer MEDICARE, MEDICAID ==
[~2017-09-15 07:47] MED LIST changes: +FURO40TA5 PO; -ISOS30TA28 PO; -VALS320T13 PO; +VALS320T16 PO
[2017-09-15 09:05] LABS: BASOPHILS % (AUTO) 0.4 % (0.0-2.0); EOSINOPHILS % (AUTO) 2.1 % (0.0-6.0); HEMATOCRIT 36 % (33-45); HEMOGLOBIN 11.6 g/dL (11.5-14.8); LYMPHOCYTES # (AUTO) 0.9 /CMM (0.8-4.8); LYMPHOCYTES % (AUTO) 19.4 % (20.0-44.0); MEAN CORPUSCULAR HGB CONC 33 g/dl (31.0-36.0); MEAN CORPUSCULAR VOLUME 79 fL (82-100); MONOCYTES # (AUTO) 0.3 /CMM (0.1-1.30); MONOCYTES % (AUTO) 7.1 % (2.0-12.0); NEUTROPHILS # (AUTO) 3.2 /CMM (1.8-8.9); PLATELET COUNT (AUTO) 176 /CMM (150-450); RDW COEFFICIENT OF VARIATION 15.6 (11.5-15.0); RED BLOOD CELL COUNT(AUTO) 4.54 MIL/uL (4.0-5.2); WHITE BLOOD COUNT (AUTO) 4.6 K/uL (4.3-11.0)
[2017-09-15 09:36] LABS: ALANINE AMINOTRANSFERASE 18 U/L (12-78); ALBUMIN 3.5 g/dL (3.4-5.0); ALKALINE PHOSPHATASE 54 U/L (46-116); ASPARTATE AMINOTRANSFERASE 21 U/L (15-37); BILIRUBIN,TOTAL 0.3 mg/dL (0.2-1.0); CALCIUM, SERUM 9.4 mg/dL (8.5-10.1); CARBON DIOXIDE 27 mmol/L (21-32); CHLORIDE 101 mmol/L (98-107); CREATININE 0.9 mg/dL (0.6-1.3); GLUCOSE 256 mg/dL (74-106); POTASSIUM 3.9 mmol/L (3.5-5.1); SODIUM SERUM 139 mmol/L (136-145); TOTAL PROTEIN, SERUM 7.8 g/dL (6.4-8.2); UREA NITROGEN, BLOOD 17 mg/dL (7-18)
[2017-09-15 09:43] LABS: CHOLESTEROL 169 mg/dL (<200); HDL CHOLESTEROL 44 mg/dL (40-60); LDL 89 mg/dL (0-99); THYROID STIMULATING HORMONE 1.607 uIU/mL (0.358-3.74); TRIGLYCERIDES 217 mg/dL (30-150)
[2017-09-15 09:57] LABS: MAGNESIUM 0.8 mg/dL (1.8-2.4)
== END 2017-09-15 23:59 | disposition home or self-care (01) ==
LOC: LAB 07:47
PROVIDERS: ATTEND Internal Medicine Interventional Cardiology
DX: I70.0 Atherosclerosis of aorta (principal); E78.5 Hyperlipidemia, unspecified; R00.0 Tachycardia, unspecified; R79.89 Other specified abnormal findings of blood chemistry; Z95.0 Presence of cardiac pacemaker; R01.1 Cardiac murmur, unspecified
CPT/HCPCS: 36415; 71045-TC; 80053-TC; 80061-TC; 82306; 83735-TC; 84439-TC; 84443-TC; 85025-TC

== ENCOUNTER 2018-02-01 10:11 | Inpatient (IN) | payer MEDICARE, MEDICAID ==
[~2018-02-01] VITALS: Ht 154.9 cm; Wt 65.9 kg
--- NOTE | 2018-02-01 10:20 | NUR ---
BIBRA 38 FROM HOME, CHEST PAIN X 1 WEEK,GETTING WORSE,BLOOD SUGAR 425. PATIENT APPEARS NOT IN DISTRESS. SKIN IS WARM TO TOUCH AND NON DIAPHORETIC. PATIENT IS AFEBRILE. VSS
[2018-02-01 10:52] LABS: BASOPHILS % (AUTO) 0.3 % (0.0-2.0); EOSINOPHILS % (AUTO) 1.5 % (0.0-6.0); HEMATOCRIT 36 % (33-45); LYMPHOCYTES # (AUTO) 0.7 /CMM (0.8-4.8); LYMPHOCYTES % (AUTO) 13.5 % (20.0-44.0); MEAN CORPUSCULAR HGB CONC 33 g/dl (31.0-36.0); MEAN CORPUSCULAR VOLUME 85 fL (82-100); MONOCYTES # (AUTO) 0.3 /CMM (0.1-1.30); MONOCYTES % (AUTO) 5.4 % (2.0-12.0); NEUTROPHILS # (AUTO) 4.2 /CMM (1.8-8.9); NEUTROPHILS % (AUTO) 79.3 % (43.0-81.0); PLATELET COUNT (AUTO) 206 /CMM (150-450); RDW COEFFICIENT OF VARIATION 13.3 (11.5-15.0); RED BLOOD CELL COUNT(AUTO) 4.25 MIL/uL (4.0-5.2); WHITE BLOOD COUNT (AUTO) 5.3 K/uL (4.3-11.0)
[2018-02-01 11:09] LABS: INR 1.11 (0.85-1.15)
[2018-02-01 11:10] LABS: TROPONIN I < 0.017 ng/mL (0.00-0.056)
[2018-02-01 11:11] LABS: GLUCOSE 375 mg/dL (74-106)
[2018-02-01 11:22] LABS: B-TYPE NATRIURETIC PEPTIDE 1309 PG/ML (0-125); CALCIUM, SERUM 8.6 mg/dL (8.5-10.1); CARBON DIOXIDE 28 mmol/L (21-32); CHLORIDE 100 mmol/L (98-107); POTASSIUM 3.8 mmol/L (3.5-5.1); SODIUM SERUM 134 mmol/L (136-145); UREA NITROGEN, BLOOD 12 mg/dL (7-18)
[2018-02-01 11:46] LABS: APPEARANCE,URINE Clear (CLEAR); BILIRUBIN,URINE Negative (NEGATIVE); BLOOD, URINE Negative Ery/uL (NEGATIVE); COLOR,URINE Yellow (YELLOW); KETONES,URINE Negative (NEGATIVE); LEUKOCYTE ESTERASE ,URINE Negative (NEGATIVE); NITRITE, URINE Negative (NEGATIVE); PROTEIN,URINE 30 mg/dl (NEGATIVE); UGLUCOSE >=1000 mg/dL (NEGATIVE); UROBILINOGEN,URINE 0.2 EU/dL (0.2)
[2018-02-01 11:49] LABS: BACTERIA,URINE RARE /HPF (None Seen); RBC,URINE 0-2 /HPF (0-2); SQUAMOUS EPITHELIAL CELL,UR FEW /HPF (None Seen); WBC,URINE 0-2 /HPF (0-3)
[2018-02-01] MEDS ORDERED: FUROSEMIDE 20 MG/2 ML VIAL ONE (12:52)
--- NOTE | 2018-02-01 12:54 | NUR ---
tele [phone]
[2018-02-01] MEDS ORDERED: FUROSEMIDE 40 MG/4 ML VIAL IV ONE (13:00)
[2018-02-01] MEDS ORDERED: FUROSEMIDE 20 MG/2 ML VIAL IV ONE (13:00)
--- NOTE | 2018-02-01 14:30 | NUR ---
BOTTLE TESTERLABELING ASSOCIATE ORDER PATIENT WAS BROUGHT TO THE TELEMETRY UNIT FROM ER ON A GURNEY, ACCOMPANIED BY 2 ER NURSES AND PATIENT'S DAUGHTER. PATIENT IS ABLE TO AMBULATE TO HER BED. ALERT ORIENTED X4, ON ROOM AIR, TOLERATING WELL. IN NO APPARENT DISTRESS OR DISCOMFORT AT THIS TIME. RESPIRATIONS EVEN AND UNLABORED. DENIES CHEST PAIN AND SOB. PATIENT IS STABLE, VITAL SIGNS STABLE. WAS ASSISTED TO HER BED, MADE COMFORTABLE. PHYSICAL ASSESSMENT COMPLETED, SKIN IS INTACT. HEALTH HISTORY OBTAINED FROM THE DAUGHTER. PATIENT IS ABLE TO COMMUNICATE NEEDS, SPEAKS AND UNDERSTANDS LITTLE NICARAGUAN. PATIENT WITH RIGHT FOREARM IVC, 20G, SL, PATENT AND INTACT. WAS PLACED ON TELE MONITORING WITH A-PACING HR OF 86. BELONGINGS CHECKED AND VERIFIED, LIST IS PLACED IN THE CHART. PATIENT WAS ORIENTED TO THE ROOM AND THE UNIT. SAFETY MEASURES WERE APPLIED, BED IN LOW LOCKED POSITION, SIDE RAILS UP X2, CALL LIGHT WITHIN EASY REACH. MD AWARE. WILL CARRY OUT FURTHER ORDERS AND CONTINUE TO MONITOR.
[2018-02-01] MEDS ORDERED: CARVEDILOL PHOSPHATE 80 MG PO SCH (15:00)
[2018-02-01 15:34] LABS: PHOSPHORUS 3.6 mg/dL (2.5-4.9)
[2018-02-01 15:58] LABS: THYROID STIMULATING HORMONE 1.89 uIU/mL (0.358-3.74)
--- NOTE | 2018-02-01 16:30 | NUR ---
SPOKE TO DR. CAMPOVERDE ON THE PHONE. RECEIVED ORDER TO CONTINUE PATIENT'S HOME MEDICATIONS. ORDERED 2G Na DIET. ORDERED LASIX 20MG IVP Q12HR. ORDERS READ BACK AND VERIFIED. WILL CARRY OUT AND CONTINUE TO MONITOR.
[2018-02-01 16:37] VITALS: BP 109/66
[2018-02-01] MEDS ORDERED: Medication Not On Formulary EA (Sitagliptin Phos/Metformin Hcl (Janumet 50-1,000 Mg Tabl PO SCH (17:00)
[2018-02-01] MEDS ORDERED: DRONEDARONE HYDROCHLORIDE 400 MG TABLET PO SCH (17:00)
[2018-02-01] MEDS ORDERED: DABIGATRAN ETEXILATE MESYLATE 150 MG CAPSULE PO SCH (17:00)
[2018-02-01] MEDS ORDERED: glipiZIDE 5 MG TABLET PO SCH (17:00)
--- NOTE | 2018-02-01 17:35 | NUR ---
RECEIVED REPORT FOR CRITICAL LAB VALUE: Mg 0.6. REPORTED TO DR. ANDREWS. VERBAL ORDER RECEIVED TO REPLACE WITH 3G MAGNESIUM. ORDER WAS PLACED FOR Mg 1gm/D5W 100ML IVPB AT THE RATE OF 100ML/HR X3 BAGS. WILL CARRY OUT AND CONTINUE TO MONITOR.
[2018-02-01] MEDS: Magnesium 1GM/D5W 100ML PREMIX 100 ML IV SCH ×3 (17:54→20:42)
[2018-02-01] MEDS: ATORVASTATIN 40 MG TABLET PO SCH (17:54)
[2018-02-01] MEDS ORDERED: OMEP40CA37 PO (18:47)
[2018-02-01] MEDS ORDERED: APIX5TAB PO (18:54)
[2018-02-01] MEDS ORDERED: LOSA100T15 PO (18:54)
[2018-02-01] MEDS ORDERED: ISOS30TA6 PO (18:54)
--- NOTE | 2018-02-01 19:20 | NUR ---
RANGE MECHANIC OPENING NOTES: RECEIVED PT ROOM AIR AND IS TOLERATING WELL. DTR AT BEDSIDE. PT EATING AND SITTING IN BED AT THIS TIME. NO SOB NOTED. NO S/S OF DISTRESS. PT HAS IV BEING INFUSED WITH MAGNESIUM 100ML/HR (SECOND BAG). CALL LIGHT WITHIN PT'S REACH. BED KEPT IN LOW, LOCKED POSITION, AND SIDE RAILS X 2UP. WILL CONTINUE TO MONITOR PT. Addendum: 02/02/18 at 0316 by JAYCEE CAMPA RN PT ON TELE BOX AND READING SHOWS PATIENT A PACING 86.
[2018-02-01] MEDS ORDERED: *INSULIN REGULAR(HUMULIN R)HUM 100 UNIT/ML VIAL SQ PRN (19:30)
[2018-02-01] MEDS ORDERED: APIXABAN 5 MG TABLET PO ONE (19:30)
[2018-02-01] MEDS ORDERED: DEXTROSE 50%-WATER 50 ML DISP.SYRIN IV PRN (19:30)
--- NOTE | 2018-02-01 19:36 | NUR ---
VP HR DIVERSITY CLOSING NOTE PATIENT IN BED. ALERT ORIENTED X4, ON ROOM AIR TOLERATING WELL. IN NO APPARENT DISTRESS OR DISCOMFORT AT THIS TIME. RESPIRATIONS EVEN AND UNLABORED. DENIES CHEST PAIN AND SOB. ABLE TO COMMUNICATE NEEDS. ON TELE MONITORING WITH A-PACING AND HR OF 86. RIGHT HAND IVC 20G WITH MAGNESIUM INFUSING AT 100 CC/HR. PATIENT AND INTACT, NO SIGN OF INFILTRATION. PATIENT IS COMPLIANT WITH INSTRUCTIONS. ABLE TO AMBULATE TO THE BATHROOM WITH STEADY GAIT, SUPERVISION FOR SAFETY. KEPT CLEAN AND COMFORTABLE, ALL ORDERS RENDERED. SAFETY MEASURES IN PLACE, BED IN LOW LOCKED POSITION, SIDE RAILS UP X2, CALL LIGHT WITHIN EASY REACH, DAUGHTER AT BEDSIDE. WILL ENDORSE TO PM NURSE FOR JADA.
[2018-02-01 20:07] VITALS: BP 125/64
[2018-02-01] MEDS ORDERED: LETR2.5T PO (20:34)
[2018-02-01] MEDS ORDERED: VALS320T2 PO (20:34)
[2018-02-01] MEDS ORDERED: CARV12.52 PO (20:34)
--- NOTE | 2018-02-01 20:37 | NUR ---
TELECOMMUNICATIONS PROFESSIONAL NOTES: SPOKE WITH DR. CAMPOVERDE AND INFORMED HIM THAT I ADDED MORE ON MED RECON LIST: LETROZOLE 2.MG PO DAILY, VALSARTAN 320MG PO DAILY, CARVEDILOL 12.5MG 1 TAB TWICE DAILY, AND FUROSEMIDE 20MG. ALSO INFORMED HIM THAT PT IS NOT TAKING LOSARTAN 100MG AND NOT TAKING FUROSEMIDE 40MG. HE WILL TAKE A LOOK AT IT TOMORROW.
[2018-02-01] MEDS ORDERED: FUROSEMIDE 20 MG/2 ML VIAL IV SCH (21:00)
[2018-02-01] MEDS: INSULIN GLARGINE, 100 UNIT/ML CARTRIDGE SQ SCH (21:15)
[2018-02-01] MEDS: BLOOD SUGAR DIAGNOSTIC 1 EACH STRIP VI SCH (21:23)
[2018-02-02] VITALS: BP 156/76
[2018-02-02] MEDS ORDERED: FURO20TA4 PO (01:33)
[2018-02-02 04:00] VITALS: BP 158/76
[2018-02-02] MEDS: INSULIN REGULAR, HUMAN 100 UNIT/ML 3 ML VIAL SQ PRN ×3 (06:21→17:38)
--- NOTE | 2018-02-02 06:31 | NUR ---
INTERNATIONAL TRAVEL CONSULTANT CLOSING NOTES: ALL NEEDS WERE ATTENDED AND ANTICIPATED FOR. PT ON 2LPM VIA NC AND IS TOLERATING WELL WITH HOB SEMI-VARGAS'S POSITION. PT ON TELE BOX AND READING SHOWS A PACING 83. NO SOB NOTED. NO S/S OF DISTRESS. PT HAS IV ON R FOREARM #20G AND IS PATENT AND INTACT. CURRENTLY H/L. BLOOD SUGAR THIS AM WAS 147. 2 UNITS OF INSULIN WAS ADMINISTERED. SNACK WAS PROVIDED TO PT. CALL LIGHT WITHIN PT'S REACH. BED KEPT IN LOW, LOCKED POSITION, AND SIDE RAILS X 2UP. WILL ENDORSE TO A NURSE FOR JADA.
[2018-02-02 06:42] LABS: ALANINE AMINOTRANSFERASE 17 U/L (12-78); ALBUMIN 3.3 g/dL (3.4-5.0); ALKALINE PHOSPHATASE 56 U/L (46-116); ASPARTATE AMINOTRANSFERASE 17 U/L (15-37); BILIRUBIN,TOTAL 0.5 mg/dL (0.2-1.0); CALCIUM, SERUM 8.6 mg/dL (8.5-10.1); CARBON DIOXIDE 30 mmol/L (21-32); CHLORIDE 99 mmol/L (98-107); CREATININE 0.9 mg/dL (0.6-1.3); GLUCOSE 133 mg/dL (74-106); MAGNESIUM 1.3 mg/dL (1.8-2.4); PHOSPHORUS 4.7 mg/dL (2.5-4.9); POTASSIUM 3.2 mmol/L (3.5-5.1); SODIUM SERUM 134 mmol/L (136-145); TOTAL PROTEIN, SERUM 7.4 g/dL (6.4-8.2); UREA NITROGEN, BLOOD 16 mg/dL (7-18)
[2018-02-02 06:51] LABS: BASOPHILS % (AUTO) 0.5 % (0.0-2.0); EOSINOPHILS % (AUTO) 2.2 % (0.0-6.0); HEMATOCRIT 36 % (33-45); HEMOGLOBIN 12.1 g/dL (11.5-14.8); LYMPHOCYTES # (AUTO) 1.1 /CMM (0.8-4.8); MEAN CORPUSCULAR HGB CONC 33 g/dl (31.0-36.0); MEAN CORPUSCULAR VOLUME 83 fL (82-100); MONOCYTES # (AUTO) 0.3 /CMM (0.1-1.30); MONOCYTES % (AUTO) 6.5 % (2.0-12.0); NEUTROPHILS # (AUTO) 3.7 /CMM (1.8-8.9); NEUTROPHILS % (AUTO) 69.8 % (43.0-81.0); PLATELET COUNT (AUTO) 207 /CMM (150-450); RDW COEFFICIENT OF VARIATION 13.2 (11.5-15.0); RED BLOOD CELL COUNT(AUTO) 4.35 MIL/uL (4.0-5.2); WHITE BLOOD COUNT (AUTO) 5.2 K/uL (4.3-11.0)
--- NOTE | 2018-02-02 07:27 | NUR ---
ANODE WORKER OPENING NOTES: RECEIVED PATIENT AWAKE IN BED IN NO ACUTE SIGNS OF DISTRESS. A/O X3. ABLE TO MAKE NEEDS KNOW, DENIES PAIN OR ANY DISCOMFORTS AT THIS TIME. ON TELEMONITORING WITH CURRENT READING OF A-PACING WITH HR OF 80, NO C/O CARDIAC DISTRESS VOICED. ON ROOM AIR, TOLERATING WELL. IV ACCESS ON RFA INTACT AND PATENT, FLUSHES WELL. SAFETY MEASURES IN PLACE. CALL LIGHT WITHIN PT'S REACH. BED IN LOW/LOCKED POSITION WITH SIDE RAILS X 2UP. REMINDED PT TO CALL FOR ASSISTANCE WHEN OOB. WILL CONTINUE TO MONITOR PT.
[2018-02-02] MEDS: BLOOD SUGAR DIAGNOSTIC 1 EACH STRIP VI SCH ×4 (07:35→21:17)
[2018-02-02] MEDS: PANTOPRAZOLE 40 MG TABLET.DR PO SCH (07:54)
--- NOTE | 2018-02-02 08:31 | NUR ---
RN NOTES RECEIVED REPORT FROM DIETITIAN CONSULTANT AMILCAR THAT PER PT'S DAUGHTER, PT IS NO LONGER GETTING CARVEDILOL 100 MG DAILY BUT 12.5 MG Q 12HRS. THAT PT IS ALSO TAKING VALSARTAN [address] ANDREWS ON UNIT AND MADE AWARE WITH ORDER TO CHANGE THE DOSAGE OF CARVEDILOL AND ADD THE VALSARTAN 320MG PO DAILY. ORDERS CARRIED OUT. WILL CONTINUE TO MONITOR.
[2018-02-02 08:35] VITALS: BP 168/83
[2018-02-02] MEDS ORDERED: CARVEDILOL 6.25 MG TABLET PO SCH (09:00)
[2018-02-02] MEDS ORDERED: FUROSEMIDE 40 MG TABLET PO SCH (09:00)
[2018-02-02] MEDS: LINAGLIPTIN 5 MG TABLET PO SCH (09:00)
[2018-02-02] MEDS ORDERED: VALSARTAN 80 MG TABLET PO SCH (09:00)
[2018-02-02] MEDS ORDERED: METFORMIN 500 MG TABLET PO SCH (09:00)
[2018-02-02] MEDS ORDERED: ESCITALOPRAM OXALATE (10 MG) 10 MG TABLET PO SCH (09:00)
[2018-02-02] MEDS ORDERED: LOSARTAN POTASSIUM 50 MG TABLET PO SCH (09:00)
[2018-02-02] MEDS: CARVEDILOL 12.5 MG TABLET PO SCH ×2 (09:15→21:00)
[2018-02-02] MEDS: POTASSIUM CHLORIDE 20 MEQ TAB.PRT.SR PO SCH ×3 (09:15→11:38)
[2018-02-02] MEDS: FUROSEMIDE 20 MG TABLET PO SCH (09:15)
[2018-02-02] MEDS: VALSARTAN 80 MG TABLET PO SCH (09:16)
[2018-02-02] MEDS: Magnesium 1GM/D5W 100ML PREMIX 100 ML IV SCH ×3 (09:17→11:38)
[2018-02-02] MEDS: ESCITALOPRAM OXALATE (10 MG) 10 MG TABLET PO SCH (09:19)
[2018-02-02] MEDS: LORATADINE 10 MG TABLET PO SCH (09:19)
[2018-02-02] MEDS: ISOSORBIDE MONONITRATE (30MG) 30 MG TAB.SR.24H PO SCH ×2 (09:20→16:40)
--- NOTE | 2018-02-02 10:02 | NUR ---
RN NOTES PATIENT SEEN AND EVALUATED BY DR ANDREWS WITH ORDER TO CHECK BP MANUALLY AND SP02 ON ROOM AIR. PT NOTED WITH BP OF 140/80MMHG MANUALLY AND SP02 96%. RESULTS GIVEN TO DR ANDREWS AND SAID "OK". PT DC'D FROM TELEMONITORING BY DR ANDREWS. WILL CONTINUE TO MONITOR
[2018-02-02] MEDS: APIXABAN 5 MG TABLET PO SCH ×2 (11:14→21:10)
--- NOTE | 2018-02-02 11:56 | NUR ---
RN NOTES PATIENT NOTED WITH ELEVATED BS OF 499 MG/DL, REPEATED ON THE ANOTHER FINGER AND WAS 497 MG/DL. PRN HUMULIN R 15 UNITS ADMINISTERED AND CALLED DR CAMPOVERDE OFFICE, SPOKE TO EVENING SITTER AND SAID THAT SHE WILL PAGED DR CAMPOVERDE AND WILL CALL ME BACK. WILL CONTINUE TO MONITOR
--- NOTE | 2018-02-02 14:14 | NUR ---
RN NOTES PATIENT WITH LOW K 3.2, REPLACED WITH K-DUR 20MEQ X3 DOSES. LOW MG 1.3, REPLACED WITH 1 MG/100ML D5W X 3 DOSES. WILL CONTINUE TO MONITOR.
--- NOTE | 2018-02-02 14:17 | NUR ---
RN NOTES PATIENT'S RFA IV ACCESS INFILTRATED, REMOVED AND APPLIED PRESSURE GAUZE. IV SITE NOTED SLIGHTLY SWOLLEN, WARM COMPRESS APPLIED THEN ADVISE PT TO ELEVATE HARM WITH PILLOW. NEW IV ACCESS INSERTED TO RIGHT HAND G#22 , SECURED WITH TAPE AND DATED. WILL CONTINUE TO MONITOR.
--- NOTE | 2018-02-02 15:21 | NUR ---
RN NOTES DR CAMPOVERDE SEEN AND EVALUATED PT WITH ORDER TO ADMINISTER NOVOLOG INSULIN 4 UNITS BEFORE MEALS, SAME ORDERED CAROTID DUPLEX IMAGING. WILL CONTINUE TO MONITOR.
[2018-02-02 16:00] VITALS: BP 111/59
[2018-02-02] MEDS: INSULIN ASPART/LISPRO 100 UNIT/ML CARTRIDGE SQ SCH (17:39)
[2018-02-02] MEDS: ATORVASTATIN 40 MG TABLET PO SCH (17:47)
--- NOTE | 2018-02-02 18:34 | NUR ---
MS RN CLOSING NOTES: PATIENT RESTING IN BED AT MODERATE HIGH BACKREST POSITION. A/O X4. ABLE TO MAKE NEEDS KNOW. PT TOLERATING ROOM AIR WITH NO SOB NOTED. DIABETIC STATUS CLOSELY MONITORED. ALL NEEDS AND CARE ATTENDED WELL. IV ACCESS ON RIGHT HAND G # 22 INTACT AND PATENT, FLUSHES WELL. ALL SAFETY MEASURES IN PLACE. CALL LIGHT WITHIN PT'S REACH. BED IN LOW/LOCKED POSITION WITH SIDE RAILS UP X2. REMINDED PT TO CALL FOR ASSISTANCE WHEN OOB. WILL ENDORSE TO FRENCH FOLDER NURSE FOR JADA..
[2018-02-02 20:00] VITALS: BP 124/80
--- NOTE | 2018-02-02 20:22 | NUR ---
MSRN FULLY AWAKE, DAUGHTER AT BEDSIDE. PATIENT ON RA, NO SOB. REMINDED TO CALL STAFF FOR ANY ASSISTANCE OR DISCOMFORTS, SAFETY PRECAUTIONS EMPHASIZED, APPEARS TO UNDERSTAND. CALL LIGHT WITHIN REACH, CLOSELY WATCHED.
[2018-02-02] MEDS: INSULIN GLARGINE, 100 UNIT/ML CARTRIDGE SQ SCH (21:24)
--- NOTE | 2018-02-02 21:45 | NUR ---
MSRN DUE MEDS GIVEN, EXCEPT COREG. REFUSED TO TAKE. EDUCATED MEDS SHE NEEDS O TAKE, STILL REFUSED. COREG. BS 88 AT THIS TIME. NO INSULIN FOR NOW. SAFETY PRECAUTIONS REMINDED, WILL CALL IF NEEDED
[2018-02-03] MEDS: BLOOD SUGAR DIAGNOSTIC 1 EACH STRIP VI SCH ×3 (06:31→17:53)
--- NOTE | 2018-02-03 06:44 | NUR ---
MSRIra BS WS 233 THIS TIME. REFUSED COVERAGE FOR NOW, WANTED INSULIN BEFORE BREAKFAST. BRP VOIDED FREELY, MIN ASSISTANCE ADLS. SAFETY PRECAUTIONS EMPHASIZED, REFUSED TO USE FWW.
[2018-02-03 07:02] LABS: CARBON DIOXIDE 28 mmol/L (21-32); CHLORIDE 102 mmol/L (98-107); CREATININE 0.9 mg/dL (0.6-1.3); GLUCOSE 224 mg/dL (74-106); MAGNESIUM 1.7 mg/dL (1.8-2.4); PHOSPHORUS 3.7 mg/dL (2.5-4.9); POTASSIUM 4.2 mmol/L (3.5-5.1); SODIUM SERUM 140 mmol/L (136-145); UREA NITROGEN, BLOOD 17 mg/dL (7-18)
--- NOTE | 2018-02-03 07:35 | NUR ---
RN NOTES PATIENT ASLEEP, BREATHING EVEN AND UNLABORED, NO SOB NOTED, NO S/SX OF DISTRESS NOTED, CALL LIGHT WITHIN REACH, WILL CONTINUE TO MONITOR.
[2018-02-03 08:00] VITALS: BP 169/90
[2018-02-03] MEDS: PANTOPRAZOLE 40 MG TABLET.DR PO SCH (08:03)
[2018-02-03] MEDS: Magnesium 1GM/D5W 100ML PREMIX 100 ML IV SCH ×2 (08:03→09:03)
[2018-02-03] MEDS: INSULIN ASPART/LISPRO 100 UNIT/ML CARTRIDGE SQ SCH ×3 (08:05→17:53)
[2018-02-03] MEDS: INSULIN REGULAR, HUMAN 100 UNIT/ML 3 ML VIAL SQ PRN ×2 (08:22→12:12)
[2018-02-03] MEDS: LINAGLIPTIN 5 MG TABLET PO SCH (08:59)
[2018-02-03] MEDS: APIXABAN 5 MG TABLET PO SCH ×2 (08:59→17:50)
[2018-02-03] MEDS: ESCITALOPRAM OXALATE (10 MG) 10 MG TABLET PO SCH (09:00)
[2018-02-03] MEDS: ISOSORBIDE MONONITRATE (30MG) 30 MG TAB.SR.24H PO SCH ×2 (09:00→17:54)
[2018-02-03] MEDS: CARVEDILOL 12.5 MG TABLET PO SCH (09:00)
[2018-02-03] MEDS: VALSARTAN 80 MG TABLET PO SCH (09:01)
[2018-02-03] MEDS: FUROSEMIDE 20 MG TABLET PO SCH (09:02)
[2018-02-03] MEDS: LORATADINE 10 MG TABLET PO SCH (09:02)
[2018-02-03 16:00] VITALS: BP 158/83
[2018-02-03 17:54] VITALS: BP 158/83
[2018-02-03] MEDS: ATORVASTATIN 40 MG TABLET PO SCH (17:54)
--- NOTE | 2018-02-03 18:25 | NUR ---
FRONT MAN PATIENT A/OX4, VERBALLY RESPONSIVE, NO DISTRESS NOTED, SEEN BY DR. CAMPOVERDE AND RECEIVED ORDER FOR DISCHARGE TO HOME. PATIENT AND DAUGHTER RECEIVED DISCHARGE INSTRUCTIONS AND BOTH VERBALIZED UNDERSTANDING. PATIENT SIGNED PAPERWORKS. PIV REMOVED, APPLIED GAUZE AND TAPE. BELONGINGS RECONCILED AND COMPLETE. PATIENT RECEIVED PRESCRIPTION. NEEDS ATTENDED AND MET, PATIENT ASSISTED VIA WHEELCHAIR, DISCHARGED TO HOME.
== END 2018-02-03 18:25 | disposition home or self-care (01) | DRG 309 ==
LOC: ER 10:13 → TELE 13:11 → MED 02-02 14:51
PROVIDERS: ADMIT Internal Medicine; ATTEND Internal Medicine
DX: I48.0 Paroxysmal atrial fibrillation (principal); I50.32 Chronic diastolic (congestive) heart failure; I11.0 Hypertensive heart disease with heart failure; I25.10 Atherosclerotic heart disease of native coronary artery without angina pectoris; E78.5 Hyperlipidemia, unspecified; F32.9 Major depressive disorder, single episode, unspecified; K21.9 Gastro-esophageal reflux disease without esophagitis; R00.2 Palpitations; Z79.01 Long term (current) use of anticoagulants; Z95.0 Presence of cardiac pacemaker; E11.40 Type 2 diabetes mellitus with diabetic neuropathy, unspecified; E11.65 Type 2 diabetes mellitus with hyperglycemia; I25.2 Old myocardial infarction; M19.90 Unspecified osteoarthritis, unspecified site; Z85.3 Personal history of malignant neoplasm of breast; Z90.710 Acquired absence of both cervix and uterus; Z92.3 Personal history of irradiation; E83.42 Hypomagnesemia; I44.7 Left bundle-branch block, unspecified; I65.21 Occlusion and stenosis of right carotid artery
CPT/HCPCS: 36415; 71045-TC; 80048-TC; 80053-TC; 81000-TC; 82962-TC; 83735-TC; 83880; 84100-TC; 84439-TC; 84443-TC; 84484-TC; 85025-TC; 85730-TC; 87081-TC; 93880-TC; A4606; J1815; J1940; J3475; J7050; Z7610

== ENCOUNTER 2019-06-21 08:23 | Emergency (ER) | payer MEDICARE, MEDICAID ==
[~2019-06-21] VITALS: Ht 165.1 cm; Wt 83.9 kg
[~2019-06-21 08:23] MED LIST changes: +APIX5TAB PO; +CARV12.52 PO; -DABI150C PO; -DRON400T2 PO; +FURO20TA4 PO; +ISOS30TA6 PO; +LETR2.5T PO; +LOSA100T31 PO; -OMEP20TA5 PO; +OMEP40CA13 PO; -VALS320T16 PO; +VALS320T2 PO
--- NOTE | 2019-06-21 08:30 | NUR ---
BIB RA C/O HYPOGLYCEMIA FROM HOME. PATIENT ALERT AND ORIENTED, ANSWERING QUESTIONS, BUT C/O WEAKNESS. DAUGHTER AT BEDSIDE. CHANGED INTO GOWN, ATTACHED TO THE WASHER OPERATOR. IV LINE ESTABLISHED.
[2019-06-21] MEDS ORDERED: DEXTROSE 50%-WATER 50 ML DISP.SYRIN ONE (08:38)
[2019-06-21] MEDS ORDERED: DEXTROSE 50%-WATER 50 ML DISP.SYRIN IV ONE (09:00)
[2019-06-21 09:20] LABS: BASOPHILS # (AUTO) 0.1 /CMM (0.0-0.2); BASOPHILS % (AUTO) 1.6 % (0.0-2.0); EOSINOPHILS % (AUTO) 1.5 % (0.0-6.0); HEMATOCRIT 46 % (33-45); HEMOGLOBIN 14.7 g/dL (11.5-14.8); MEAN CORPUSCULAR HGB CONC 32 g/dl (31.0-36.0); MEAN CORPUSCULAR VOLUME 85 fL (82-100); MONOCYTES # (AUTO) 0.5 /CMM (0.1-1.30); MONOCYTES % (AUTO) 6.9 % (2.0-12.0); NEUTROPHILS # (AUTO) 5.7 /CMM (1.8-8.9); PLATELET COUNT (AUTO) 172 /CMM (150-450); RED BLOOD CELL COUNT(AUTO) 5.42 MIL/uL (4.0-5.2); WHITE BLOOD COUNT (AUTO) 7.4 K/uL (4.3-11.0)
[2019-06-21 09:25] LABS: CALCIUM, SERUM 9.6 mg/dL (8.5-10.1); CREATININE 1.1 mg/dL (0.6-1.3); POTASSIUM 3.8 mmol/L (3.5-5.1)
[2019-06-21 09:30] LABS: ALBUMIN 3.8 g/dL (3.4-5.0); BILIRUBIN,DIRECT 0.1 mg/dL (0.0-0.2); BILIRUBIN,TOTAL 0.4 mg/dL (0.2-1.0); TOTAL PROTEIN, SERUM 8.5 g/dL (6.4-8.2)
--- NOTE | 2019-06-21 09:30 | NUR ---
Patient attempted to eat, but "doesnt feel hungry at this time" Given orange juice and tolerated well.
[2019-06-21 10:21] LABS: APPEARANCE,URINE Clear (CLEAR); BILIRUBIN,URINE Negative (NEGATIVE); BLOOD, URINE Negative Ery/uL (NEGATIVE); COLOR,URINE Yellow (YELLOW); KETONES,URINE Negative (NEGATIVE); LEUKOCYTE ESTERASE ,URINE Negative (NEGATIVE); NITRITE, URINE Negative (NEGATIVE); PROTEIN,URINE Negative (NEGATIVE); UGLUCOSE >=1000 mg/dL (NEGATIVE); UROBILINOGEN,URINE 0.2 EU/dL (0.2)
[2019-06-21 10:23] LABS: BACTERIA,URINE Few /HPF (None Seen); RBC,URINE 0-2 /HPF (0-2); SQUAMOUS EPITHELIAL CELL,UR Few /HPF (None Seen); WBC,URINE 0-2 /HPF (0-3)
--- NOTE | 2019-06-21 10:54 | NUR ---
Patient ambulatory with a steady gait. IV removed. Catheter intact and site benign. Pressure and 4x4 applied to site. No bleeding noted.Patient discharged to home in stable condition. Written and verbal after care instructions given. Patient verbalizes understanding of instruction.
[2019-06-21 10:56] VITALS: BP 156/96
== END 2019-06-21 10:57 | disposition home or self-care (01) ==
LOC: ER 08:25
DX: E11.649 Type 2 diabetes mellitus with hypoglycemia without coma (principal); T38.3X5A Adverse effect of insulin and oral hypoglycemic [antidiabetic] drugs, initial encounter; I48.0 Paroxysmal atrial fibrillation; I10 Essential (primary) hypertension; Z95.0 Presence of cardiac pacemaker; Z85.3 Personal history of malignant neoplasm of breast; Z90.710 Acquired absence of both cervix and uterus; Z98.890 Other specified postprocedural states; Z79.899 Other long term (current) drug therapy; Y92.89 Other specified places as the place of occurrence of the external cause
CPT/HCPCS: 36415; 71045-TC; 80048-TC; 80076-TC; 81000-TC; 82962-TC; 85025-TC

== ENCOUNTER 2019-08-02 00:05 | Emergency (ER) | payer MEDICARE, OTHER ==
[~2019-08-02] VITALS: Ht 157.5 cm; Wt 67.6 kg
[2019-08-02 00:15] VITALS: BP 165/80
[2019-08-02] MEDS ORDERED: MORPHINE SULFATE INJ 2 MG/ML DISP.SYRIN IM ONE (00:30)
[2019-08-02] MEDS ORDERED: ONDANSETRON 4 MG TAB.RAPDIS SL ONE (00:30)
[2019-08-02] MEDS ORDERED: ONDANSETRON 4 MG TAB.RAPDIS ONE (00:32)
[2019-08-02] MEDS ORDERED: MORPHINE SULFATE INJ 4 MG/ML DISP.SYRIN ONE (00:32)
--- NOTE | 2019-08-02 00:38 | NUR ---
Patient discharged to home in stable condition. Written and verbal after care instructions given. Patient verbalizes understanding of instruction.
== END 2019-08-02 00:39 | disposition home or self-care (01) ==
LOC: ER 00:06
DX: B02.9 Zoster without complications (principal); I10 Essential (primary) hypertension; E11.9 Type 2 diabetes mellitus without complications; Z85.3 Personal history of malignant neoplasm of breast; Z90.710 Acquired absence of both cervix and uterus; Z95.0 Presence of cardiac pacemaker; Z79.899 Other long term (current) drug therapy; Z98.890 Other specified postprocedural states
CPT/HCPCS: 96372; 99283; J2270; Q0162

== ENCOUNTER 2019-08-31 23:06 | Emergency (ER) | payer MEDICARE, OTHER ==
[~2019-08-31] VITALS: Ht 157.5 cm; Wt 67.6 kg
--- NOTE | 2019-08-31 23:10 | NUR ---
PT CAME TO THE ED C/O HIGH BLOOD SUGAR @400'S AT HOME. +NAUSEA. PT'S BLOOD SUGAR IS AT 344. PT AAOX4, RR EVEN AND UNLABORED ON RA W/ NAD NOTED. PT CONNECTED TO THE MONITOR AND POX.
[2019-08-31] MEDS ORDERED: IV NS 0.9% 1,000 ML BAG IV ONE (23:30)
[2019-08-31 23:38] LABS: BASOPHILS # (AUTO) 0.1 /CMM (0.0-0.2); BASOPHILS % (AUTO) 1.4 % (0.0-2.0); EOSINOPHILS % (AUTO) 4.6 % (0.0-6.0); HEMATOCRIT 34 % (33-45); LYMPHOCYTES # (AUTO) 1.1 /CMM (0.8-4.8); LYMPHOCYTES % (AUTO) 22.3 % (20.0-44.0); MEAN CORPUSCULAR HGB CONC 33 g/dl (31.0-36.0); MEAN CORPUSCULAR VOLUME 87 fL (82-100); MONOCYTES # (AUTO) 0.5 /CMM (0.1-1.30); MONOCYTES % (AUTO) 9.7 % (2.0-12.0); PLATELET COUNT (AUTO) 193 /CMM (150-450); RED BLOOD CELL COUNT(AUTO) 3.83 MIL/uL (4.0-5.2); WHITE BLOOD COUNT (AUTO) 4.8 K/uL (4.3-11.0)
--- NOTE | 2019-08-31 23:39 | NUR ---
BLOOD COLLECTED AND SENT TO LAB
--- NOTE | 2019-08-31 23:45 | NUR ---
XRAY AT BEDSIDE
--- NOTE | 2019-08-31 23:45 | NUR ---
URINE COLLECTED AND SENT TO LAB
[2019-08-31 23:46] LABS: APPEARANCE,URINE Slightly Cloudy (CLEAR); BILIRUBIN,URINE Negative (NEGATIVE); BLOOD, URINE Negative Ery/uL (NEGATIVE); COLOR,URINE Yellow (YELLOW); KETONES,URINE Trace (NEGATIVE); LEUKOCYTE ESTERASE ,URINE Negative (NEGATIVE); NITRITE, URINE Negative (NEGATIVE); PH,URINE 5.5 (5.0-8.0); PROTEIN,URINE 30 mg/dl (NEGATIVE); UGLUCOSE 500 MG/DL mg/dL (NEGATIVE); UROBILINOGEN,URINE 0.2 EU/dL (0.2)
[2019-08-31 23:49] LABS: CALCIUM, SERUM 8.9 mg/dL (8.5-10.1); CREATININE 1.2 mg/dL (0.6-1.3); POTASSIUM 4.5 mmol/L (3.5-5.1)
[2019-09-01 00:01] LABS: BACTERIA,URINE Rare /HPF (None Seen); RBC,URINE 0-2 /HPF (0-2); SQUAMOUS EPITHELIAL CELL,UR Few /HPF (None Seen); WBC,URINE 0-2 /HPF (0-3)
[2019-09-01 01:04] VITALS: BP 143/87
--- NOTE | 2019-09-01 01:04 | NUR ---
Patient discharged to home in stable condition. Written and verbal after care instructions given. Patient verbalizes understanding of instruction.Pt ambulatory with a steady gait
== END 2019-09-01 01:04 | disposition home or self-care (01) ==
LOC: ER 23:06
DX: E11.65 Type 2 diabetes mellitus with hyperglycemia (principal); I10 Essential (primary) hypertension; Z85.3 Personal history of malignant neoplasm of breast; Z90.710 Acquired absence of both cervix and uterus; Z95.0 Presence of cardiac pacemaker; Z98.890 Other specified postprocedural states; Z79.899 Other long term (current) drug therapy
CPT/HCPCS: 36415; 71045-TC; 80048-TC; 81000-TC; 82010-TC; 82962-TC; 85025-TC; J7030

== ENCOUNTER 2021-10-19 10:34 | Inpatient (IN) | payer MEDICARE, OTHER ==
[~2021-10-19] VITALS: Ht 165.1 cm; Wt 62.1 kg
[~2021-10-19 10:34] MED LIST changes: -CARV40CP PO; +CARV40CP11 PO; -ISOS30TA6 PO; +ISOS30TA86 PO; -OMEP40CA13 PO; +OMEP40CA21 PO
--- NOTE | 2021-10-19 10:54 | NUR ---
The patient is , from home, c/o dizziness, weak, and nausea started around 8am. The patient is alert and oriented x3. Denies pain at this time. In room air and denies SOB. Respiration regular and unlabored. The patient is attached to the monitor. Warm blanket provided for comfort. Will continue to monitor the patient.
--- NOTE | 2021-10-19 11:12 | NUR ---
OXYGEN SATURATION IN ROOM AIR 91-92%. DR HILLMAN MADE AWARE. THE PATIENT IS PLACED ON OXYGEN AT 2L/MIN VIA NASAL CANNULA AND SATURATION LEVEL IMPORVED TO 98%. WILL CONTINUE TO MONITOR THE PATIENT.
[2021-10-19] MEDS ORDERED: MECLIZINE HCL 25 MG TABLET ONE (11:13)
--- NOTE | 2021-10-19 11:18 | NUR ---
health technician hearing at the bedside
--- NOTE | 2021-10-19 11:26 | NUR ---
COVID SWAB DONE AND SENT TO LAB
[2021-10-19 11:27] LABS: BASOPHILS % (AUTO) 0.6 % (0.0-2.0); EOSINOPHILS % (AUTO) 0.8 % (0.0-6.0); HEMATOCRIT 33 % (33-45); HEMOGLOBIN 10.7 g/dL (11.5-14.8); LYMPHOCYTES # (AUTO) 0.3 K/uL (0.8-4.8); LYMPHOCYTES % (AUTO) 3.8 % (20.0-44.0); MEAN CORPUSCULAR HGB CONC 32 g/dl (31.0-36.0); MEAN CORPUSCULAR VOLUME 81 fL (82-100); MONOCYTES # (AUTO) 0.4 K/uL (0.1-1.30); MONOCYTES % (AUTO) 4.2 % (2.0-12.0); NEUTROPHILS # (AUTO) 7.9 K/uL (1.8-8.9); NEUTROPHILS % (AUTO) 90.6 % (43.0-81.0); PLATELET COUNT (AUTO) 189 K/uL (150-450); RED BLOOD CELL COUNT(AUTO) 4.11 MIL/uL (4.0-5.2); WHITE BLOOD COUNT (AUTO) 8.7 K/uL (4.3-11.0)
--- NOTE | 2021-10-19 11:28 | NUR ---
UNABLE TO PROVIDED URINE AT THIS TIME
[2021-10-19] MEDS ORDERED: MECLIZINE HCL 12.5 MG TABLET PO ONE (11:30)
[2021-10-19 11:52] LABS: ALANINE AMINOTRANSFERASE 27 U/L (12-78); ALBUMIN 2.7 g/dL (3.4-5.0); ALKALINE PHOSPHATASE 94 U/L (46-116); ASPARTATE AMINOTRANSFERASE 28 U/L (15-37); BILIRUBIN,DIRECT 0.1 mg/dL (0.0-0.2); BILIRUBIN,TOTAL 0.4 mg/dL (0.2-1.0); CALCIUM, SERUM 7.1 mg/dL (8.5-10.1); CARBON DIOXIDE 25 mmol/L (21-32); CHLORIDE 104 mmol/L (98-107); CREATININE 1.8 mg/dL (0.6-1.3); GLUCOSE 268 mg/dL (74-106); POTASSIUM 4.1 mmol/L (3.5-5.1); SODIUM SERUM 141 mmol/L (136-145); TOTAL PROTEIN, SERUM 7.2 g/dL (6.4-8.2); UREA NITROGEN, BLOOD 30 mg/dL (7-18)
[2021-10-19] MEDS ORDERED: METF-442 PO (12:10)
[2021-10-19] MEDS ORDERED: DULO60CA64 PO (12:10)
[2021-10-19] MEDS ORDERED: POTA20TA83 PO (12:10)
[2021-10-19] MEDS ORDERED: MAGN400T26 PO (12:10)
[2021-10-19] MEDS ORDERED: SITA100T PO (12:10)
[2021-10-19] MEDS ORDERED: SPIR25TA6 PO (12:10)
[2021-10-19] MEDS ORDERED: EMPA10TA PO (12:10)
[2021-10-19] MEDS ORDERED: ATOR80TA PO (12:10)
--- NOTE | 2021-10-19 13:07 | NUR ---
URINE COLLECTED AND SENT TO THE LAB
[2021-10-19 13:13] LABS: BILIRUBIN,URINE NEGATIVE (NEGATIVE); COLOR,URINE YELLOW (YELLOW); NITRITE, URINE NEGATIVE (NEGATIVE); PH,URINE 5.5 (5.0-8.0); PROTEIN,URINE NEGATIVE (NEGATIVE); UGLUCOSE >=1000 mg/dL (NEGATIVE); UROBILINOGEN,URINE 0.2 EU/dL (0.2)
--- NOTE | 2021-10-19 13:20 | NUR ---
room 115-1
[2021-10-19 13:29] LABS: LEUKOCYTE ESTERASE ,URINE 3+ (NEGATIVE)
[2021-10-19 13:30] LABS: BACTERIA,URINE Moderate /HPF (None Seen); SQUAMOUS EPITHELIAL CELL,UR Few /HPF (None Seen); WBC,URINE 51-80 /HPF (0-3)
[2021-10-19] MEDS ORDERED: Z GUARD REMEDY 4 OZ OINT TP PRN (14:00)
[2021-10-19] MEDS ORDERED: ACETAMINOPHEN 325 MG TABLET PO PRN (14:00)
[2021-10-19] MEDS ORDERED: IV NS 0.9% 1,000 ML IV PRN (14:00)
[2021-10-19] MEDS ORDERED: ONDANSETRON HCL/PF 4 MG/2 ML VIAL IVP PRN (14:00)
[2021-10-19] MEDS ORDERED: MAG HYDROX/AL HYDROX/SIMETH 30 ML UDC PO PRN (14:00)
--- NOTE | 2021-10-19 14:07 | NUR ---
REPORT GIVEN TO ALE NEGRON FOR JADA
--- NOTE | 2021-10-19 14:18 | NUR ---
TRANSFERRED TO BED 115 IN STABLE CONDITION
[2021-10-19 15:35] VITALS: BP 141/61
[2021-10-19] MEDS: CARVEDILOL 12.5 MG TABLET PO SCH (16:34)
[2021-10-19] MEDS: HYDROCODONE/APAP 10/325MG TABLET PO PRN ×6 (16:35→18:43)
[2021-10-19] MEDS: MAGNESIUM OXIDE 400 MG TABLET PO SCH (16:35)
--- NOTE | 2021-10-19 16:42 | NUR ---
RN note patient c/o generalized pain , new order received for [place]arton 10-325mg 1tab was given to the patient
[2021-10-19] MEDS ORDERED: DEXTROSE 50%-WATER 50 ML DISP.SYRIN IV PRN (17:00)
--- NOTE | 2021-10-19 17:03 | NUR ---
RN initial report note report received from the er for the patient Sophy Nicholas. Patien tcame from home due to developed generalized weakness, nausea and vomiting . Patient is alert, oriented times 3 , forgetful , COVID negative . admitted with primary diagnosis of the Acute Hert Failure ,generalized weakness and UTI .Patient is on room air , heart rate 78 SR, breathing un labored. Has peripheral IV on left wris 20 g, flushed with 10cc of the NS, Started patient on Ns 75 ml/hr. Patient also has Hx of HTN, CABG, hysterectomy and breast CA with no mastectomy.. PRN order recived for pain . All medications administered per MD order . All safety measures implemented .Bed at the lowest position , bed side rails up, Call light within reach.
[2021-10-19] MEDS: *INSULIN REGULAR(HUMULIN R)HUM 100 UNIT/ML VIAL SQ PRN ×2 (17:32→22:17)
[2021-10-19] MEDS ORDERED: ATORVASTATIN 40 MG TABLET PO SCH (18:00)
[2021-10-19] MEDS: BLOOD SUGAR DIAGNOSTIC 1 EACH STRIP VI SCH ×2 (18:18→22:11)
--- NOTE | 2021-10-19 18:38 | NUR ---
RN closing note : patient is at bed resting , after taking [place] stating that has no pain. NS started at theadmision ,than received the order to put on hold . Patient ate her diner 80 % had elevated BS 365 , 10 units on R insulin was administered. All safety precautions were observed. Bed is at lowest position , bed side rails are up.Call light is within reach .
[2021-10-19 20:00] VITALS: BP 106/60
[2021-10-19] MEDS ORDERED: MAGNESIUM HYDROXIDE 30 ML UDC PO PRN (22:00)
[2021-10-19] MEDS ORDERED: ZOLPIDEM TARTRATE 5 MG TABLET PO PRN (22:00)
[2021-10-19] MEDS: ATORVASTATIN 40 MG TABLET PO SCH (22:10)
[2021-10-20] VITALS: BP 125/63
[2021-10-20 04:00] VITALS: BP 127/66
[2021-10-20 07:24] LABS: BASOPHILS % (AUTO) 0.6 % (0.0-2.0); EOSINOPHILS % (AUTO) 2.1 % (0.0-6.0); HEMATOCRIT 32 % (33-45); HEMOGLOBIN 10.6 g/dL (11.5-14.8); LYMPHOCYTES # (AUTO) 0.5 K/uL (0.8-4.8); LYMPHOCYTES % (AUTO) 7.7 % (20.0-44.0); MEAN CORPUSCULAR HGB CONC 33 g/dl (31.0-36.0); MEAN CORPUSCULAR VOLUME 81 fL (82-100); MONOCYTES # (AUTO) 0.6 K/uL (0.1-1.30); MONOCYTES % (AUTO) 8.2 % (2.0-12.0); NEUTROPHILS # (AUTO) 5.7 K/uL (1.8-8.9); NEUTROPHILS % (AUTO) 81.4 % (43.0-81.0); PLATELET COUNT (AUTO) 187 K/uL (150-450); RED BLOOD CELL COUNT(AUTO) 3.93 MIL/uL (4.0-5.2)
--- NOTE | 2021-10-20 07:30 | NUR ---
RN OPENING NOTE PATIENT IS IN BED, AWAKE, ALERT, ORIENTED X 3. ON ROOM AIR WITH O2 SATURATION AT 98%. 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 WITH LEFT FOREARM GAUGE 20 SALINE LOCK, INTACT AND PATENT. BED IS LOCKED IN LOWEST POSITION, 3 SIDE RAILS UP, CALL LIGHT WITHIN REACH. NOT IN ANY FORM OF DISTRESS. WILL CONTINUE TO MONITOR THROUGHOUT SHIFT.
[2021-10-20 07:32] LABS: CALCIUM, SERUM 6.5 mg/dL (8.5-10.1); CARBON DIOXIDE 24 mmol/L (21-32); CHLORIDE 105 mmol/L (98-107); CREATININE 1.8 mg/dL (0.6-1.3); GLUCOSE 214 mg/dL (74-106); PHOSPHORUS 3.5 mg/dL (2.5-4.9); POTASSIUM 3.7 mmol/L (3.5-5.1); SODIUM SERUM 138 mmol/L (136-145); UREA NITROGEN, BLOOD 25 mg/dL (7-18)
[2021-10-20 07:56] LABS: MAGNESIUM 0.5 mg/dL (1.8-2.4)
[2021-10-20 08:00] VITALS: BP 123/55
[2021-10-20] MEDS: BLOOD SUGAR DIAGNOSTIC 1 EACH STRIP VI SCH ×4 (08:16→21:14)
[2021-10-20] MEDS: LINAGLIPTIN 5 MG TABLET PO SCH (08:27)
[2021-10-20] MEDS: MAGNESIUM OXIDE 400 MG TABLET PO SCH ×2 (08:28→17:05)
[2021-10-20] MEDS: DULOXETINE HCL 30 MG CAPSULE.DR PO SCH (08:28)
[2021-10-20] MEDS: CARVEDILOL 12.5 MG TABLET PO SCH ×2 (08:28→17:05)
[2021-10-20] MEDS: PANTOPRAZOLE 40 MG TABLET.DR PO SCH (08:28)
[2021-10-20] MEDS: *INSULIN REGULAR(HUMULIN R)HUM 100 UNIT/ML VIAL SQ PRN (08:30)
[2021-10-20] MEDS: Magnesium 1GM/D5W 100ML PREMIX 100 ML IV SCH ×6 (08:44→16:16)
[2021-10-20] MEDS ORDERED: Magnesium 1 GM/2 ML VIAL IV ONE (09:00)
[2021-10-20 12:00] VITALS: BP 113/45
[2021-10-20] MEDS ORDERED: FUROSEMIDE 20 MG/2 ML VIAL IV ONE (12:00)
[2021-10-20] MEDS: INSULIN REGULAR, HUMAN 100 UNIT/ML 3 ML VIAL SQ PRN ×2 (12:30→21:18)
[2021-10-20] MEDS ORDERED: CEFTRIAXONE 1 G in IV D5W 50 ML IV SCH (14:00)
[2021-10-20 16:00] VITALS: BP 120/50
--- NOTE | 2021-10-20 16:17 | NUR ---
RN NOTE IV OUT. MIDLINE INSERTED BY BARBARA NEGRON (MIDLINE NURSE) AFTER MULTIPLE PERIPHERAL IV ATTEMPTS.
[2021-10-20] MEDS: EMPAGLIFLOZIN 25 MG PO SCH (18:04)
--- NOTE | 2021-10-20 18:57 | NUR ---
RN CLOSING NOTE PATIENT IS IN BED AWAKE, ON ROOM AIR AND WITH 94% O2 SATURATION. PATIENT REMAINED STABLE THROUGHOUT SHIFT, DENIES PAIN, BREATHING UNLABORED. RIGHT UPPER ARM MIDLINE REMAINS INTACT AND PATENT. KEPT COMFORTABLE AND CLEAN. ALL HOSPITAL PRECAUTIONS IN PLACE. BED IS LOCKED IN LOWEST POSITION, 3 SIDE RAILS UP, CALL LIGHT WITHIN REACH. WILL ENDORSE TO SHIELD RUNNER NURSE.
--- NOTE | 2021-10-20 19:30 | NUR ---
PROJ ENGINEER OPENING NOTES RECEIVED PT IN BED, A/O X 3. GRANDSON ON BEDSIDE. CURRENTLY ON RA, TOLERATING WELL WITH NO S/SX OF ACUTE DISTRESS NOTED AT THIS TIME, NO SOB, NO PAIN. TELEMONITOR SHOWS AV PACING WITH HR OF 85. SATING AT 93%. PT IS ASYMPTOMATIC. WILL MONITOR CLOSELY. IV ACCESS NOTED IN R ARM MIDLINE #20g. PATENT AND INTACT. KEPT HOB ELEVATED. ALL SAFETY MEASURES IN PLACE: BED LOCKED IN LOWEST POSITION, CALL LIGHT WITHIN REACH. WILL CONTINUE TO MONITOR FOR ANY CHANGES.
[2021-10-20 20:00] VITALS: BP 122/78
[2021-10-20] MEDS: CEFTRIAXONE 1 G in IV D5W 50 ML IV SCH (20:45)
[2021-10-20] MEDS: ATORVASTATIN 40 MG TABLET PO SCH (21:07)
[2021-10-21] VITALS: BP 129/63
[2021-10-21 04:00] VITALS: BP 144/60
[2021-10-21 06:22] LABS: CALCIUM, SERUM 6.8 mg/dL (8.5-10.1); CARBON DIOXIDE 24 mmol/L (21-32); CHLORIDE 103 mmol/L (98-107); CREATININE 1.7 mg/dL (0.6-1.3); GLUCOSE 180 mg/dL (74-106); POTASSIUM 3.7 mmol/L (3.5-5.1); SODIUM SERUM 136 mmol/L (136-145); UREA NITROGEN, BLOOD 20 mg/dL (7-18)
[2021-10-21 06:28] LABS: BASOPHILS % (AUTO) 0.7 % (0.0-2.0); HEMATOCRIT 31 % (33-45); HEMOGLOBIN 10.2 g/dL (11.5-14.8); LYMPHOCYTES # (AUTO) 0.4 K/uL (0.8-4.8); LYMPHOCYTES % (AUTO) 6.3 % (20.0-44.0); MEAN CORPUSCULAR HGB CONC 32 g/dl (31.0-36.0); MEAN CORPUSCULAR VOLUME 81 fL (82-100); MONOCYTES # (AUTO) 0.5 K/uL (0.1-1.30); MONOCYTES % (AUTO) 7.2 % (2.0-12.0); NEUTROPHILS # (AUTO) 5.8 K/uL (1.8-8.9); NEUTROPHILS % (AUTO) 82.8 % (43.0-81.0); PLATELET COUNT (AUTO) 187 K/uL (150-450); RED BLOOD CELL COUNT(AUTO) 3.87 MIL/uL (4.0-5.2)
--- NOTE | 2021-10-21 06:52 | NUR ---
BRAKE MECHANIC CLOSING NOTE PT REMAINED STABLE THROUGHOUT THE NIGHT. PT IS A/O X 3. ON RA, TOLERATING WELL, NO S/SX OF ACUTE DISTRESS NOTED, NO SOB, NO PAIN. TELEMONITOR SHOWS AV PACING WITH HR OF 80s. SATING AT 95%. IV ACCESS IN R ARM MIDLINE #20g. PATENT AND INTACT. ALL DUE MEDS GIVEN. ALL NEEDS ATTENDED TO. NO SIGNIFICANT FINDINGS UPON NURSING ASSESSMENT. SAFETY MEASURES IMPLEMENTED: BED LOCKED IN LOWEST POSITION, CALL LIGHT WITHIN REACH. WILL ENDORSE TO AM SHIFT NURSE FOR JADA.
[2021-10-21] MEDS: BLOOD SUGAR DIAGNOSTIC 1 EACH STRIP VI SCH ×4 (07:51→21:45)
--- NOTE | 2021-10-21 08:04 | NUR ---
MILIEU THERAPIST OPENING NOTE RECEIVED PATIENT IN BED, AWAKE, A/O X 3. PATIENT ON RA, TOLERATING WELL, NO S/SX OF ACUTE DISTRESS NOTED, NO SOB, NO PAIN. TELE MONITOR SHOWS AV PACING WITH HR OF 80s. JOSE MIDLINE PRESENT AND INTACT. SAFETY PRECAUTIONS IN PLACE; BED LOCKED IN LOWEST POSITION, RAILS UP X2, CALL LIGHT WITHIN REACH. WILL CONTINUE TO MONITOR PATIENT.
[2021-10-21] MEDS: MAGNESIUM OXIDE 400 MG TABLET PO SCH ×2 (08:26→16:23)
[2021-10-21] MEDS: EMPAGLIFLOZIN 25 MG PO SCH (08:27)
[2021-10-21] MEDS: DULOXETINE HCL 30 MG CAPSULE.DR PO SCH (08:27)
[2021-10-21] MEDS: PANTOPRAZOLE 40 MG TABLET.DR PO SCH (08:27)
[2021-10-21] MEDS: LINAGLIPTIN 5 MG TABLET PO SCH (08:28)
[2021-10-21] MEDS: CARVEDILOL 12.5 MG TABLET PO SCH ×2 (08:29→16:23)
[2021-10-21] MEDS: INSULIN REGULAR, HUMAN 100 UNIT/ML 3 ML VIAL SQ PRN ×3 (08:35→17:37)
[2021-10-21 09:54] VITALS: BP 121/50
[2021-10-21 12:36] VITALS: BP 105/79
[2021-10-21] MEDS ORDERED: IV NS 0.9% 1,000 ML IV PRN (14:00)
--- NOTE | 2021-10-21 14:35 | NUR ---
FITTING ROOM OPERATOR NOTES PATIENT COMPLAINING OF BACK PAIN 4 OUT OF 10; REQUESTING PAIN MEDICATION. PRN TYLENOL ADMINISTERED.
[2021-10-21 16:10] VITALS: BP 123/63
--- NOTE | 2021-10-21 18:42 | NUR ---
SENIOR WEB DEVELOPER CLOSING NOTE PATIENT REMAINS IN BED, RESTING, A/O X 3. PATIENT ON RA, TOLERATING WELL, NO S/SX OF ACUTE DISTRESS NOTED, NO SOB DURING THE DAY. PAIN TREATED WITH PRN PAIN MEDICATION PER MD ORDER. TELE MONITOR SHOWS AV PACING. JOSE MIDLINE PRESENT AND INTACT. ALL NEEDS ATTENDED DURING THE DAY. SAFETY PRECAUTIONS IN PLACE; BED LOCKED IN LOWEST POSITION, RAILS UP X2, CALL LIGHT WITHIN REACH. WILL ENDORSE TO BAD CLOTH CHECKER NURSE FOR JADA.
[2021-10-21] MEDS: CEFTRIAXONE 1 G in IV D5W 50 ML IV SCH (19:52)
[2021-10-21 20:00] VITALS: BP 130/68
[2021-10-21] MEDS: ATORVASTATIN 40 MG TABLET PO SCH (21:21)
[2021-10-21] MEDS: *INSULIN REGULAR(HUMULIN R)HUM 100 UNIT/ML VIAL SQ PRN (21:46)
[2021-10-22] VITALS: BP 135/67
[2021-10-22 04:00] VITALS: BP 131/69
--- NOTE | 2021-10-22 06:28 | NUR ---
LOCOMOTIVE ELECTRICIAN NOTE PT IN BED AWAKE. NO DISTRESS OR DISCOMFORT NOTED. DENIES PAIN. IVF NS INFUSING 50 ML/HR. NO S/S OF INFILTRATION NOTED. ALL NEEDS ATTENDED. WILL ENDORSE TO DAY SHIFT NURSE FOR CONTINUE TO CARE.
[2021-10-22 06:47] LABS: CALCIUM, SERUM 7.2 mg/dL (8.5-10.1); CARBON DIOXIDE 23 mmol/L (21-32); CHLORIDE 103 mmol/L (98-107); CREATININE 1.5 mg/dL (0.6-1.3); GLUCOSE 162 mg/dL (74-106); POTASSIUM 4.1 mmol/L (3.5-5.1); SODIUM SERUM 138 mmol/L (136-145); UREA NITROGEN, BLOOD 18 mg/dL (7-18)
[2021-10-22] MEDS: BLOOD SUGAR DIAGNOSTIC 1 EACH STRIP VI SCH ×4 (07:34→21:31)
[2021-10-22] MEDS: INSULIN REGULAR, HUMAN 100 UNIT/ML 3 ML VIAL SQ PRN ×4 (07:39→21:30)
--- NOTE | 2021-10-22 07:50 | NUR ---
RN am note Patient is alert, oriented times , ambulatory , high risk for falls, due to dizziness, generalized weakness.Patient is at room air, breathing unlabored , , Patient has karyn med line 20 g , open , flushed with 10 cc of the NS, Skin is intact , no open wounds , all safety measure were applied. Bed is at the lowest position, bed side rails are up , Call light within reach. Bed alarm is on .Will continue to monitor.
[2021-10-22 08:00] VITALS: BP 172/59
[2021-10-22] MEDS: LINAGLIPTIN 5 MG TABLET PO SCH (08:54)
[2021-10-22] MEDS: DULOXETINE HCL 30 MG CAPSULE.DR PO SCH (08:54)
[2021-10-22] MEDS: CARVEDILOL 12.5 MG TABLET PO SCH ×2 (08:56→16:17)
[2021-10-22] MEDS: FUROSEMIDE 40 MG/4 ML VIAL IV SCH ×3 (09:00→16:18)
[2021-10-22] MEDS: EMPAGLIFLOZIN 25 MG PO SCH (09:02)
[2021-10-22] MEDS: PANTOPRAZOLE 40 MG TABLET.DR PO SCH (09:06)
[2021-10-22] MEDS: MAGNESIUM OXIDE 400 MG TABLET PO SCH ×2 (09:07→16:18)
[2021-10-22 12:00] VITALS: BP 156/70
[2021-10-22] MEDS: *INSULIN REGULAR(HUMULIN R)HUM 100 UNIT/ML VIAL SQ PRN (12:10)
--- NOTE | 2021-10-22 12:30 | NUR ---
MS RN NOTE RESTING COMFORTABLY ,NOT IN DISTRESS
[2021-10-22 16:00] VITALS: BP 134/66
--- NOTE | 2021-10-22 16:04 | NUR ---
MS RN NOTE ASSISTED TO BR, ALL NEEDS ATTENDED B NOT IN DISTRESS, CALL LIGHT WITHIN REACH
[2021-10-22] MEDS: HYDROCODONE/APAP 10/325MG TABLET PO PRN ×2 (17:22→18:25)
--- NOTE | 2021-10-22 18:29 | NUR ---
RN closing note Patient is alert , oriented times 3 , ambulatory , high risk for fall due to dizziness ,patient is on room air , breathing unlabor , was transferred today from tele to [facility], upon day shift patient c/o about sever pain of the low back [facility] was given. all medications were given ,bed is at lowest position , bed side rails are up , call light within reach, will endorse cnc machinist 2nd shift to continue fallow POC.
[2021-10-22] MEDS: CEFTRIAXONE 1 G in IV D5W 50 ML IV SCH (19:56)
[2021-10-22 20:00] VITALS: BP 148/68
--- NOTE | 2021-10-22 20:00 | NUR ---
MS RN NOTE PT IN BED AWAKE. NO DISTRESS OR DISCOMFORT NOTED. DENIES PAIN. A/O X 3. JOSE MIDLINE #20 G INTACT AND PATENT. NO S/S OF HYPO OR HYPERGLYCEMIA NOTED. ALL NEEDS ATTENDED. SIDE RAILS UP X 2 AND CALL LIGHT WITHIN REACH. VSS. CONTINUE TO MONITOR HER.
[2021-10-22] MEDS: ATORVASTATIN 40 MG TABLET PO SCH (21:29)
[2021-10-23] VITALS: BP 147/72
[2021-10-23 04:00] VITALS: BP 158/61
--- NOTE | 2021-10-23 06:30 | NUR ---
MS RN NOTE PT IN BED ASLEEP, NO DISTRESS OR DISCOMFORT NOTED. DENIES PAIN. ALL NEEDS ATTENDED. WILL ENDORSE TO DAY SHIFT NURSE FOR CONTINUE TO CARE.
[2021-10-23 07:33] LABS: BASOPHILS % (AUTO) 0.5 % (0.0-2.0); HEMATOCRIT 33 % (33-45); HEMOGLOBIN 10.7 g/dL (11.5-14.8); LYMPHOCYTES # (AUTO) 0.5 K/uL (0.8-4.8); LYMPHOCYTES % (AUTO) 7.8 % (20.0-44.0); MEAN CORPUSCULAR HGB CONC 32 g/dl (31.0-36.0); MEAN CORPUSCULAR VOLUME 80 fL (82-100); MONOCYTES # (AUTO) 0.5 K/uL (0.1-1.30); MONOCYTES % (AUTO) 6.6 % (2.0-12.0); NEUTROPHILS # (AUTO) 5.7 K/uL (1.8-8.9); NEUTROPHILS % (AUTO) 82.1 % (43.0-81.0); PLATELET COUNT (AUTO) 242 K/uL (150-450); RED BLOOD CELL COUNT(AUTO) 4.14 MIL/uL (4.0-5.2)
[2021-10-23 07:36] LABS: ALANINE AMINOTRANSFERASE 18 U/L (12-78); ALBUMIN 2.4 g/dL (3.4-5.0); ALKALINE PHOSPHATASE 87 U/L (46-116); ASPARTATE AMINOTRANSFERASE 14 U/L (15-37); BILIRUBIN,TOTAL 0.3 mg/dL (0.2-1.0); CARBON DIOXIDE 27 mmol/L (21-32); CHLORIDE 101 mmol/L (98-107); CREATININE 1.6 mg/dL (0.6-1.3); GLUCOSE 145 mg/dL (74-106); MAGNESIUM 1.5 mg/dL (1.8-2.4); PHOSPHORUS 3.5 mg/dL (2.5-4.9); POTASSIUM 3.3 mmol/L (3.5-5.1); SODIUM SERUM 137 mmol/L (136-145); UREA NITROGEN, BLOOD 20 mg/dL (7-18)
[2021-10-23] MEDS: BLOOD SUGAR DIAGNOSTIC 1 EACH STRIP VI SCH ×3 (07:56→16:44)
[2021-10-23] MEDS: INSULIN REGULAR, HUMAN 100 UNIT/ML 3 ML VIAL SQ PRN ×3 (07:59→16:46)
--- NOTE | 2021-10-23 08:10 | NUR ---
FLAME BURNER OPENING NOTES RECEIVED PT IN BED, A/O X 3. CURRENTLY ON RA, TOLERATING WELL WITH NO S/SX OF ACUTE DISTRESS NOTED, NO SOB, BREATHING EVEN AND UNLABORED. NO COMPLAINS OF PAIN AT THIS TIME. ABLE TO AMBULATE WITH WALKER AND CAREFUL MONITORING. ROOM FREE OF CLUTTER. . SATING AT 95%. PT IS ASYMPTOMATIC, WILL MONITOR CLOSELY. IV ACCESS NOTED IN R ARM MIDLINE #20g. PATENT AND INTACT, NO S/SX OF INFILTRATION OR PHLEBITIS. KEPT HOB ELEVATED. ALL SAFETY MEASURES IN PLACE: BED LOCKED IN LOWEST POSITION, CALL LIGHT WITHIN REACH. WILL CONTINUE TO MONITOR FOR ANY CHANGES.
[2021-10-23] MEDS ORDERED: EMPAGLIFLOZIN 25 MG TABLET PO SCH (09:00)
[2021-10-23] MEDS: Magnesium 1GM/D5W 100ML PREMIX 100 ML IV SCH ×2 (09:03→10:22)
[2021-10-23] MEDS: PANTOPRAZOLE 40 MG TABLET.DR PO SCH (09:04)
[2021-10-23] MEDS: DULOXETINE HCL 30 MG CAPSULE.DR PO SCH (09:04)
[2021-10-23] MEDS: MAGNESIUM OXIDE 400 MG TABLET PO SCH ×2 (09:04→16:25)
[2021-10-23] MEDS: LINAGLIPTIN 5 MG TABLET PO SCH (09:04)
[2021-10-23] MEDS: CARVEDILOL 12.5 MG TABLET PO SCH ×2 (09:05→16:25)
[2021-10-23] MEDS: FUROSEMIDE 40 MG/4 ML VIAL IV SCH ×3 (09:07→16:24)
[2021-10-23] MEDS: POTASSIUM CHLORIDE 20 MEQ TAB.PRT.SR PO SCH ×3 (09:13→11:25)
[2021-10-23] MEDS ORDERED: SULF1TAB48 PO (09:30)
[2021-10-23 16:00] VITALS: BP 132/59
[2021-10-23 16:25] VITALS: BP 132/59
--- NOTE | 2021-10-23 16:47 | NUR ---
HEAVY MOBILE EQUIPMENT OPERATOR NOTES PT IN BED, A/O X 3. CURRENTLY ON RA, TOLERATING WELL WITH NO S/SX OF ACUTE DISTRESS NOTED, NO SOB, BREATHING EVEN AND UNLABORED. NO COMPLAINS OF PAIN AT THIS TIME. ABLE TO AMBULATE WITH WALKER AND CAREFUL MONITORING. ROOM FREE OF CLUTTER. . SATING AT 98%. IV ACCESS OF RIGHT UPPER ARM WAS DISCONTINUED NO BLEEDING NOTED, SKIN INTACT. DISCHARGE INSTRUCTIONS GIVEN TO PT AND HER SON VERBALIZED UNDERSTANDING, ASSISTED PT TO HER SON'S CAR IN STABLE CONDITION
== END 2021-10-23 16:45 | disposition home or self-care (01) | DRG 291 ==
LOC: ER 10:40 → TELE1 13:51 → MEDSG1 10-22 09:56
PROVIDERS: ADMIT Nurse Practitioner Acute Care; ATTEND Internal Medicine
PROC: 05HB33Z Insertion of Infusion Device into Right Basilic Vein, Percutaneous Approach (ICD-10-PCS; principal; 2021-10-20)
DX: I13.0 Hypertensive heart and chronic kidney disease with heart failure and stage 1 through stage 4 chronic kidney disease, or unspecified chronic kidney disease (principal); I50.33 Acute on chronic diastolic (congestive) heart failure; N17.0 Acute kidney failure with tubular necrosis; J96.01 Acute respiratory failure with hypoxia; N39.0 Urinary tract infection, site not specified; I48.20 Chronic atrial fibrillation, unspecified; E44.0 Moderate protein-calorie malnutrition; E11.9 Type 2 diabetes mellitus without complications; I25.10 Atherosclerotic heart disease of native coronary artery without angina pectoris; Z95.1 Presence of aortocoronary bypass graft; Z95.0 Presence of cardiac pacemaker; Z96.652 Presence of left artificial knee joint; Z96.612 Presence of left artificial shoulder joint; Z90.710 Acquired absence of both cervix and uterus; Z79.84 Long term (current) use of oral hypoglycemic drugs; Z79.4 Long term (current) use of insulin; N18.9 Chronic kidney disease, unspecified; Z79.01 Long term (current) use of anticoagulants; Z79.811 Long term (current) use of aromatase inhibitors; Z79.899 Other long term (current) drug therapy; M19.90 Unspecified osteoarthritis, unspecified site; E11.22 Type 2 diabetes mellitus with diabetic chronic kidney disease; E78.5 Hyperlipidemia, unspecified; E83.51 Hypocalcemia; E88.09 Other disorders of plasma-protein metabolism, not elsewhere classified; I44.7 Left bundle-branch block, unspecified; Z85.3 Personal history of malignant neoplasm of breast; Z90.10 Acquired absence of unspecified breast and nipple; Z20.822 Contact with and (suspected) exposure to COVID-19; Z92.3 Personal history of irradiation; E83.42 Hypomagnesemia; Z91.81 History of falling
CPT/HCPCS: 36415; 70450-TC; 71045-TC; 76770-TC; 80048-TC; 80053-TC; 80076-TC; 81001; 82962-TC; 83735-TC; 83880; 84100-TC; 84484-TC; 85025-TC; 87086-TC; 87186-TC; 93307-TC; 97116-TC; 97530-TC; C9803; G0378; J0696; J1815; J1940; J3475; J7030; J7060; J8597